=== PATIENT | male | born 1990 | race Two or more races ===

== ENCOUNTER 2022-10-06 13:02 | Emergency (ER) | payer MEDICAID, SELFPAY ==
[2022-10-06 13:06] VITALS: BP 135/89; PULSE 96; RESP 18; TEMP 37.4; O2SAT 99; BMI 31.3
--- NOTE | 2022-10-06 13:06 | ED_ITS ---
HPI - Psych General Chief Complaint: Psychiatric Symptoms <Lynnette Gabriel NP - Last Filed: 10/06/22 13:11> Stated Complaint: crisis <Lynnette Gabriel NP - Last Filed: 10/06/22 13:11> Time Seen by Provider: 10/06/22 13:31 <Lynnette Gabriel NP - Last Filed: 10/06/22 13:11> Source: patient <KIRT Ware - Last Filed: 10/06/22 14:48> Mode of arrival: ambulatory <KIRT Ware - Last Filed: 10/06/22 14:48> Limitations: no limitations <KIRT Ware Last Filed: 10/06/22 14:48> History of Present Illness HPI Narrative: Patient is a 32 year old assigned male at with a history of cocaine use presenting to the emergency department today with increased delusions and paranois. Patient states that he has a history of delusions and they are usually worse with his cocaine use. Patient states that he used cocaine last night and they got bad so he came to the hospital. Patient states that he has no thoughts of harming himself or others. Patient denies any dizziness, lightheadedness, abdominal pain, nausea, vomiting, fever, chills, blurry vision, double vision, loss of vision, chest pain, difficulty breathing, shortness of breath, back pain, night sweats, pain with urination, increased urinary frequency, increased urinary urgency, blood in his urine or stool, syncope or a near syncopal episode, recent trauma or falls, bowel incontinence, bladder incontinence, bowel retention, bladder retention, or any other complaints at this time. <KIRT Ware - Last Filed: 10/06/22 14:48> History of same: Yes <KIRT Ware - Last Filed: 10/06/22 14:48> Relieving factors: none <KIRT Ware - Last Filed: 10/06/22 14:48> Exacerbating factors: drug use (cocaine) <KIRT Ware Last Filed: 10/06/22 14:48> Context: recent drug abuse (cocaine) <KIRT Ware - Last Filed: 10/06/22 14:48> Associated psychiatric symptoms: delusions <KIRT Ware - Last Filed: 10/06/22 14:48> Associated symptoms: denies other symptoms <KIRT Ware - Last Filed: 10/06/22 14:48> Treatments prior to arrival: none <KIRT Ware - Last Filed: 10/06/22 14:48> Related Data Allergies/Adverse Reactions: Allergies Allergy/AdvReac Type Severity Reaction Status Date / Time fluoxetine [From Prozac] Allergy Hives Verified 10/06/22 13:10 prazosin Allergy Hives Verified 10/06/22 13:10 <Lynnette Gabriel NP - Last Filed: 10/06/22 13:11> Review of Systems Constitutional: Constitutional: Reports no additional constitutional complaints, Denies chills, Denies fever(s) and Denies night sweats <KIRT Ware - Last Filed: 10/06/22 14:48> Eyes: Eyes: Reports no additional eye complaints, Denies blurry vision, Denies change in vision, Denies diplopia, Denies eye discharge, Denies loss of vision and Denies eye pain <KIRT Ware - Last Filed: 10/06/22 14:48> ENT: Denies dizziness <KIRT Ware - Last Filed: 10/06/22 14:48> Cardiovascular: Cardiovascular: Reports no additional cardiovascular complaints, Denies chest pain, Denies lightheadedness, Denies Loss of Consciousness and Denies dyspnea <KIRT Ware - Last Filed: 10/06/22 14:48> Respiratory: Respiratory: Reports no additional respiratory complaints and Denies dyspnea <KIRT Ware - Last Filed: 10/06/22 14:48> Gastrointestinal: Gastrointestinal: Reports no additional gastrointestinal complaints, Denies abdominal pain, Denies melena, Denies hematochezia, Denies change in bowel habits and Denies change in stool character <KIRT Ware - Last Filed: 10/06/22 14:48> Genitourinary: Genitourinary: Reports no additional male genitourinary complaints, Denies hematuria, Denies oliguria, Denies difficulty urinating, Denies dysuria, Denies urinary frequency, Denies urinary hesitancy, Denies urinary incontinence and Denies urinary urgency <KIRT Ware - Last Filed: 10/06/22 14:48> Musculoskeletal: Musculoskeletal: Reports no additional musculoskeletal complaints, Denies numbness and Denies tingling <KIRT Ware - Last Filed: 10/06/22 14:48> Neurologic: Denies dizziness, Denies loss of vision, Denies numbness and Denies tingling <KIRT Ware - Last Filed: 10/06/22 14:48> Psychiatric: Psychiatric: Reports no additional psychiatric complaints and Reports paranoia <KIRT Ware - Last Filed: 10/06/22 14:48> Endocrine: Endocrine: Reports no additional endocrine complaints <KIRT Ware - Last Filed: 10/06/22 14:48> Hematologic/Lymphatic: Hematologic/Lymphatic: Reports no additional hematologic/lymphatic complaints <KIRT Ware - Last Filed: 10/06/22 14:48> Allergic/Immunologic: Allergic/Immunologic: Reports no additional allergic/immunologic complaints <KIRT Ware - Last Filed: 10/06/22 14:48> [facility] Past Medical History Attestation statement: The following information was validated with the patient. <KIRT Ware - Last Filed: 10/06/22 14:48> Source: old records reviewed and nursing notes reviewed <KIRT Ware - Last Filed: 10/06/22 14:48> Social History Social History: Social History Advance Directives: No Advance Directives Information Provided: No <Lynnette Gabriel NP - Last Filed: 10/06/22 13:11> Physical Exam Vital Signs: Vital Signs: Last Vital Signs Temp 99.3 F 10/06/22 13:06 Pulse 96 10/06/22 13:06 Resp 18 10/06/22 13:06 BP 135/89 10/06/22 13:06 Pulse Ox 99 10/06/22 13:06 O2 Del Method 10/06/22 13:06 BMI result Body Mass Index 31.3 <Lynnette Gabriel NP - Last Filed: 10/06/22 13:11> Vital Signs: Last Vital Signs Temp 99.3 F 10/06/22 13:06 Pulse 96 10/06/22 13:06 Resp 18 10/06/22 13:06 BP 135/89 10/06/22 13:06 Pulse Ox 99 10/06/22 13:06 O2 Del Method 10/06/22 13:06 BMI result Body Mass Index 31.3 <KIRT Ware - Last Filed: 10/06/22 14:48> Const: General: cooperative, no acute distress, alert and awake <KIRT Ware - Last Filed: 10/06/22 14:48> Nutritional Appearance: well nourished <KIRT Ware - Last Filed: 10/06/22 14:48> Orientation/consciousness: patient oriented x3 <KIRT Ware - Last Filed: 10/06/22 14:48> Limitations: no limitations <KIRT Ware - Last Filed: 10/06/22 14:48> HEENT: Head: Yes normal to inspection and Yes atraumatic <KIRT Ware - Last Filed: 10/06/22 14:48> Ears: hearing grossly normal bilaterally and external ears normal <KIRT Ware - Last Filed: 10/06/22 14:48> General nose exam: Normal external nose present, no nasal discharge noted and no epistaxis <KIRT Ware - Last Filed: 10/06/22 14:48> Face and sinus: Yes normal facial exam, No abrasion and No laceration <KIRT Ware - Last Filed: 10/06/22 14:48> Mouth: Normal oral and palatal mucosa present, no drooling and no muffled voice <KIRT Ware - Last Filed: 10/06/22 14:48> Eyes: General: appearance normal, both eyes and all related structures <KIRT Ware - Last Filed: 10/06/22 14:48> Periorbital: periorbital findings normal <KIRT Ware - Last Filed: 10/06/22 14:48> Eyelids: Yes eyelids normal <KIRT Ware - Last Filed: 10/06/22 14:48> Conjunctivae: conjunctivae normal <KIRT Ware - Last Filed: 10/06/22 14:48> Pupils: Equal, round and reactive pupils present <Sigrid Pickens MI - Last Filed: 10/06/22 14:48> EOM: EOMs intact bilaterally <Sigrid Pickens MI - Last Filed: 10/06/22 14:48> Neck: Neck: Yes normal visual inspection, Yes full ROM and Yes no lymphadenopathy <Sigrid Pickens MI - Last Filed: 10/06/22 14:48> Chest: Chest palpation & inspection: normal inspection of the chest <Sigrid Pickens MI - Last Filed: 10/06/22 14:48> Resp: Effort & Inspection: normal respiratory effort and able to speak in complete sentences <Sigrid Pickens MI - Last Filed: 10/06/22 14:48> Auscultation: clear to auscultation bilaterally <Sigrid Pickens MI - Last Filed: 10/06/22 14:48> Cardio: Rate: regular rate <Sigrid Pickens MI - Last Filed: 10/06/22 14:48> Rhythm: regular rhythm <Sigrid Pickens MI - Last Filed: 10/06/22 14:48> GI: Inspection: Yes normal to inspection <Sigrid Pickens MI - Last Filed: 10/06/22 14:48> Neuro: General: patient oriented x3 and moves all extremities <Sigrid Pickens MI - Last Filed: 10/06/22 14:48> Cranial nerves: Yes Equal, round and reactive pupils present <Sigrid Pickens MI - Last Filed: 10/06/22 14:48> Cognition (Neuro): normal cognition <Sigrid Pickens MI - Last Filed: 10/06/22 14:48> Motor exam (neuro): 5/5 motor strength present throughout <Sigrid Pickens MI - Last Filed: 10/06/22 14:48> Sensory Exam: Normal double simultaneous stimulation for sensation <Sigrid Pickens MI - Last Filed: 10/06/22 14:48> Coordination: [id number] test normal <Sigrid Pickens MI - Last Filed: 10/06/22 14:48> Extrem: General: Yes normal to inspection, Yes full ROM and Yes capillary refill normal <KIRT Ware - Last Filed: 10/06/22 14:48> Psych: Appearance: grossly normal <KIRT Ware - Last Filed: 10/06/22 14:48> Mental Status: mental status grossly normal <KIRT Ware - Last Filed: 10/06/22 14:48> Affect: normal affect <KIRT Ware - Last Filed: 10/06/22 14:48> Attitude: cooperative <KIRT Ware - Last Filed: 10/06/22 14:48> Thought process: Normal thought process present <KIRT Ware - Last Filed: 10/06/22 14:48> Thought content: Normal thought content present <KIRT Ware - Last Filed: 10/06/22 14:48> Insight: Good insight present (Psych) <KIRT Ware - Last Filed: 10/06/22 14:48> Course Course Course Narrative: This is rapid medical exam. Deferred additional HPI, ROS, PE to primary provider. 32 yo male with history of mental health (treated in [place] [facility]-not on medications) here with paranoia,hallucinations, not sleeping. No SI/HI. Will obtain labs, BURGER, COVID screen. Patient to be brought into [facility]. <Lynnette Gabriel NP - Last Filed: 10/06/22 13:11> Medical Decision Making Medical Decision Making MDM Narrative: Patient is a 32 year old assigned male at with a history of delusions and cocaine use presenting to the emergency department today with increased delusions after cocaine use. Patient's physical exam was unremarkable. Patient was placed in the POD and requested to leave shortly after. Patient stated that the POD reminded him of correction and he knows his delusions got worse because he used cocaine. Patient states that he would rather go home and stop using cocaine. I explained my physical exam findings to the patient. I answered all questions asked by the patient. I stressed the importance of the patient taking his medication as prescribed. I stressed the importance of the patient following up with his primary care provider. I stressed the importance of the patient returning to the emergency department immediately if his symptoms were to worsen or if he were to develop any dizziness, shortness of breath, difficulty breathing, chest pain, blurry vision, loss of vision, nausea, vomiting, abdominal pain, fever, chills, back pain, or any other complaints. Patient verbalized agreement and understanding with this treatment plan and discharge. <KIRT Ware - Last Filed: 10/06/22 14:48> Differential Diagnosis Differential Diagnoses: The differential diagnosis associated with the presentation includes <KIRT Ware - Last Filed: 10/06/22 14:48> delusions, cocaine use <KIRT Ware - Last Filed: 10/06/22 14:48> Lab Data MDM Lab Attestation statement: I reviewed the patient's lab results. <KIRT Ware Last Filed: 10/06/22 14:48> Labs: Lab Results 10/06/22 10/06/22 Range/Units 13:51 13:51 Urine Opiates Screen Not Detected (Not Detect) Urine Fentanyl Screen POSITIVE H (Not Detect) Ur Barbiturates Screen Not Detected (Not Detect) Ur Phencyclidine Scrn Not Detected (Not Detect) Ur Amphetamines Screen Not Detected (Not Detect) U Benzodiazepines Scrn Not Detected (Not Detect) Urine Cocaine Screen POSITIVE H (Not Detect) U Marijuana (THC) Screen POSITIVE H (Not Detect) COVID-19 ([place]) Negative (Negative) COVID-19 Clin Com See Note <Lynnette Gabriel NP - Last Filed: 10/06/22 13:11> Lab Results 10/06/22 10/06/22 Range/Units 13:51 13:51 Urine Opiates Screen Not Detected (Not Detect) Urine Fentanyl Screen POSITIVE H (Not Detect) Ur Barbiturates Screen Not Detected (Not Detect) Ur Phencyclidine Scrn Not Detected (Not Detect) Ur Amphetamines Screen Not Detected (Not Detect) U Benzodiazepines Scrn Not Detected (Not Detect) Urine Cocaine Screen POSITIVE H (Not Detect) U Marijuana (THC) Screen POSITIVE H (Not Detect) COVID-19 ([place]) Negative (Negative) COVID-19 Clin Com See Note <KIRT Ware - Last Filed: 10/06/22 14:48> Discharge Plan Discharge Clinical Impression: Cocaine use <Lynnette Gabriel NP - Last Filed: 10/06/22 13:11> Patient Disposition: Home, Self-Care <ANGELITA Zambrano Last Filed: 10/06/22 13:11> Instructions: Cocaine Abuse (ED) <Lynnette Gabriel NP - Last Filed: 10/06/22 13:11> Additional Instructions: Follow up with your primary care provider. Return to the emergency department immediately if your symptoms worsen or if you develop any dizziness, shortness of breath, difficulty breathing, chest pain, blurry vision, loss of vision, nausea, vomiting, abdominal pain, fever, chills, back pain, or any other complaints. <Lynnette Gabriel NP - Last Filed: 10/06/22 13:11> Referrals: Tiffani Beatty MD [Primary Care Provider] - <Lynnette Gabriel NP - Last Filed: 10/06/22 13:11> Interventions: [place]-Suicide Risk Severity Scale Last Done: 10/06/22 14:09 ED Discharge Assessment Last Done: 10/06/22 14:07 <Lynnette Gabriel NP - Last Filed: 10/06/22 13:11> Discharge Date/Time: 10/06/22 14:09 <Lynnette Gabriel NP - Last Filed: 10/06/22 13:11> Print Language: Lithuanian <Lynnette Gabriel NP - Last Filed: 10/06/22 13:11>
[2022-10-06 14:10] LABS: Amphetamine Screen Urine Not Detected (Not Detect); Barbiturates, Urine Not Detected (Not Detect); Benzodiazepines Screen Urine Not Detected (Not Detect); Cannabinoid Screen Urine POSITIVE (Not Detect); Cocaine Screen Urine POSITIVE (Not Detect); Fentanyl, urine POSITIVE (Not Detect); Opiate Screen Urine Not Detected (Not Detect); Phencyclidine Screen Urine Not Detected (Not Detect)
[2022-10-06 14:18] LABS: COVID-19 Test Negative (Negative); IDNOW Serial# 16C4AD1C
== END 2022-10-06 14:09 | disposition home or self-care (01) ==
PROVIDERS: Nurse Practitioner Family; Emergency Provider Student in an Organized Health Care Education/Training Program; PCP Family Medicine
DX: F14.10 Cocaine abuse, uncomplicated (principal); F22 Delusional disorders; Z20.822 Contact with and (suspected) exposure to COVID-19
CPT/HCPCS: 80307; 87635; 99283

== ENCOUNTER 2022-11-08 16:44 | Emergency (ER) | payer OTHER, MEDICAID, SELFPAY ==
--- NOTE | ~2022-11-08 | XR_ITS ---
EXAMINATION: XR CHEST CLINICAL INFORMATION: Leukocytosis and altered mental status COMPARISON: None TECHNIQUE: Frontal view of the chest was obtained. FINDINGS: No significant abnormality is noted involving the heart, lungs, mediastinum, bony thorax or soft tissues. XR/XR chest 1V IMPRESSION: Unremarkable examination.
--- NOTE | 2022-11-08 16:48 | ED_ITS ---
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 Comments Sodium 137 (135-145) mmol/L Potassium 3.9 (3.3-5.1) mmol/L Chloride 101 (96-108) mmol/L Carbon Dioxide 23 (22-29) mmol/L Anion Gap 17 (12-20) BUN 12 (9-16) mg/dL Creatinine 1.20 (0.5-1.4) mg/dL Estim Creat Clear Calc 85.3 Estimated GFR > 60 Random Glucose 103 (60-115) mg/dL Calcium 9.3 (8.4-10.2) mg/dL Total Bilirubin 2.2 H (0.0-1.0) mg/dL AST 86 H (5-37) U/L ALT 30 (0-40) U/L Alkaline Phosphatase 108 (39-117) U/L Troponin I High Sens (<3.5-35.0) ng/L Total Protein 7.1 (6.5-8.0) g/dL Albumin 4.4 (3.5-5.0) g/dL Urine Color Urine Appearance Urine pH (5.0-9.0) Ur Specific [place] (1.005-1.025) Urine Protein (Neg-Trace) mg/dL Urine Glucose (UA) (Negative) mg/dL Urine Ketones (Negative) mg/dL Urine Blood (Negative) Urine Nitrite (Negative) Ur Leukocyte Esterase (Negative) Urine RBC (0-2) /HPF Urine WBC (0-5) /HPF Ur Squamous Epith Cells (0-2) /HPF Urine Bacteria (None Seen) Hyaline Casts (0-2) /LPF Salicylates (15-30) mg/dL Urine Opiates Screen (Not Detect) Urine Fentanyl Screen (Not Detect) Acetaminophen (<30) mcg/mL Ur Barbiturates Screen (Not Detect) Ur Phencyclidine Scrn (Not Detect) Ur Amphetamines Screen (Not Detect) U Benzodiazepines Scrn (Not Detect) Urine Cocaine Screen (Not Detect) U Marijuana (THC) Screen (Not Detect) Ethyl Alcohol < 10 mg/dL COVID-19 (NAKUL) Negative (Negative) COVID-19 Clin Com See Note Influenza Type A (ANGELIKA) (Negative) Influenza Type B (ANGELIKA) (Negative) Influenza A & B Note 11/08/22 11/08/22 11/08/22 Range/Units 18:14 18:14 20:08 WBC (4.8-10.8) X10*3/uL RBC (4.60-5.80) X10*6/uL Hgb (14.0-18.0) g/dl Hct (42.0-52.0) % MCV (80.0-98.0) fL MCH (27.0-33.0) pg MCHC (31.0-36.0) g/dl RDW (11.0-16.0) % Plt Count (160-400) X10*3/uL MPV (9.4-12.4) fL Immature Gran % (Auto) (0.0-0.4) % Neut % (Auto) (45-73) % Lymph % (Auto) (20-40) % [place] % (Auto) (2-11) % Eos % (Auto) (0-4) % Baso % (Auto) (0-2) % Lymph # (Auto) (1.2-4.9) X10*3/uL [place] # (Auto) (0.1-1.2) X10*3/uL Eos # (Auto) (0.0-0.4) X10*3/uL Baso # (Auto) (0.0-0.2) X10*3/uL Abs Immat Gran (auto) (0.00-0.03) X10*3/uL Absolute Neuts (auto) (2.0-8.3) x10*3/uL Absolute Nucleated RBC (0.0-0.012) X10*3/uL Nucleated RBC % (auto) (0.0-0.2) /100WBC Smear Tech's Comments Sodium (135-145) mmol/L Potassium (3.3-5.1) mmol/L Chloride (96-108) mmol/L Carbon Dioxide (22-29) mmol/L Anion Gap (12-20) BUN (9-16) mg/dL Creatinine (0.5-1.4) mg/dL Estim Creat Clear Calc Estimated GFR Random Glucose (60-115) mg/dL Calcium (8.4-10.2) mg/dL Total Bilirubin (0.0-1.0) mg/dL AST (5-37) U/L ALT (0-40) U/L Alkaline Phosphatase (39-117) U/L Troponin I High Sens 6.9 (<3.5-35.0) ng/L Total Protein (6.5-8.0) g/dL Albumin (3.5-5.0) g/dL Urine Color Urine Appearance Urine pH (5.0-9.0) Ur Specific [place] (1.005-1.025) Urine Protein (Neg-Trace) mg/dL Urine Glucose (UA) (Negative) mg/dL Urine Ketones (Negative) mg/dL Urine Blood (Negative) Urine Nitrite (Negative) Ur Leukocyte Esterase (Negative) Urine RBC (0-2) /HPF Urine WBC (0-5) /HPF Ur Squamous Epith Cells (0-2) /HPF Urine Bacteria (None Seen) Hyaline Casts (0-2) /LPF Salicylates < 5.0 L (15-30) mg/dL Urine Opiates Screen (Not Detect) Urine Fentanyl Screen (Not Detect) Acetaminophen < 17 (<30) mcg/mL Ur Barbiturates Screen (Not Detect) Ur Phencyclidine Scrn (Not Detect) Ur Amphetamines Screen (Not Detect) U Benzodiazepines Scrn (Not Detect) Urine Cocaine Screen (Not Detect) U Marijuana (THC) Screen (Not Detect) Ethyl Alcohol mg/dL COVID-19 (NAKUL) (Negative) COVID-19 Clin Com Influenza Type A (ANGELIKA) Negative (Negative) Influenza Type B (ANGELIKA) Negative (Negative) Influenza A & B Note See Note 11/09/22 11/09/22 11/09/22 Range/Units 03:34 03:40 03:40 WBC 14.4 H (4.8-10.8) X10*3/uL RBC 5.29 (4.60-5.80) X10*6/uL Hgb 15.9 (14.0-18.0) g/dl Hct 46.1 (42.0-52.0) % MCV 87.1 (80.0-98.0) fL MCH 30.1 (27.0-33.0) pg MCHC 34.5 (31.0-36.0) g/dl RDW 12.4 (11.0-16.0) % Plt Count 158 L (160-400) X10*3/uL MPV 9.4 (9.4-12.4) fL Immature Gran % (Auto) 0.3 (0.0-0.4) % Neut % (Auto) 69.2 (45-73) % Lymph % (Auto) 13.6 L (20-40) % [place] % (Auto) 12.7 H (2-11) % Eos % (Auto) 3.5 (0-4) % Baso % (Auto) 0.7 (0-2) % Lymph # (Auto) 2.0 (1.2-4.9) X10*3/uL [place] # (Auto) 1.8 H (0.1-1.2) X10*3/uL Eos # (Auto) 0.5 H (0.0-0.4) X10*3/uL Baso # (Auto) 0.1 (0.0-0.2) X10*3/uL Abs Immat Gran (auto) 0.04 H (0.00-0.03) X10*3/uL Absolute Neuts (auto) 10.0 H (2.0-8.3) x10*3/uL Absolute Nucleated RBC 0.000 (0.0-0.012) X10*3/uL Nucleated RBC % (auto) 0.0 (0.0-0.2) /100WBC Smear Tech's Comments VERIFIED Sodium (135-145) mmol/L Potassium (3.3-5.1) mmol/L Chloride (96-108) mmol/L Carbon Dioxide (22-29) mmol/L Anion Gap (12-20) BUN (9-16) mg/dL Creatinine (0.5-1.4) mg/dL Estim Creat Clear Calc Estimated GFR Random Glucose (60-115) mg/dL Calcium (8.4-10.2) mg/dL Total Bilirubin (0.0-1.0) mg/dL AST (5-37) U/L ALT (0-40) U/L Alkaline Phosphatase (39-117) U/L Troponin I High Sens (<3.5-35.0) ng/L Total Protein (6.5-8.0) g/dL Albumin (3.5-5.0) g/dL Urine Color Yellow Urine Appearance Clear Urine pH 6.0 (5.0-9.0) Ur Specific [place] 1.025 (1.005-1.025) Urine Protein 30 (1+) H (Neg-Trace) mg/dL Urine Glucose (UA) Negative (Negative) mg/dL Urine Ketones 40 (Negative) mg/dL Urine Blood Negative (Negative) Urine Nitrite Negative (Negative) Ur Leukocyte Esterase Negative (Negative) Urine RBC 0-2 (0-2) /HPF Urine WBC 0-5 (0-5) /HPF Ur Squamous Epith Cells 0-2 (0-2) /HPF Urine Bacteria None Seen (None Seen) Hyaline Casts 0-2 (0-2) /LPF Salicylates (15-30) mg/dL Urine Opiates Screen Not Detected (Not Detect) Urine Fentanyl Screen POSITIVE H (Not Detect) Acetaminophen (<30) mcg/mL Ur Barbiturates Screen Not Detected (Not Detect) Ur Phencyclidine Scrn Not Detected (Not Detect) Ur Amphetamines Screen Not Detected (Not Detect) U Benzodiazepines Scrn Not Detected (Not Detect) Urine Cocaine Screen POSITIVE H (Not Detect) U Marijuana (THC) Screen POSITIVE H (Not Detect) Ethyl Alcohol mg/dL COVID-19 (NAKUL) (Negative) COVID-19 Clin Com Influenza Type A (ANGELIKA) (Negative) Influenza Type B (ANGELIKA) (Negative) Influenza A & B Note <KIRT Moulton - Last Filed: 11/09/22 01:41> Lab Results 11/08/22 11/08/22 11/08/22 Range/Units 18:14 18:14 18:14 WBC 15.1 H (4.8-10.8) X10*3/uL RBC 5.16 (4.60-5.80) X10*6/uL Hgb 15.7 (14.0-18.0) g/dl Hct 44.4 (42.0-52.0) % MCV 86.0 (80.0-98.0) fL MCH 30.4 (27.0-33.0) pg MCHC 35.4 (31.0-36.0) g/dl RDW 12.2 (11.0-16.0) % Plt Count 180 (160-400) X10*3/uL MPV 9.5 (9.4-12.4) fL Immature Gran % (Auto) 0.4 (0.0-0.4) % Neut % (Auto) 82.8 H (45-73) % Lymph % (Auto) 5.9 L (20-40) % [place] % (Auto) 8.5 (2-11) % Eos % (Auto) 1.8 (0-4) % Baso % (Auto) 0.6 (0-2) % Lymph # (Auto) 0.9 L (1.2-4.9) X10*3/uL [place] # (Auto) 1.3 H (0.1-1.2) X10*3/uL Eos # (Auto) 0.3 (0.0-0.4) X10*3/uL Baso # (Auto) 0.1 (0.0-0.2) X10*3/uL Abs Immat Gran (auto) 0.06 H (0.00-0.03) X10*3/uL Absolute Neuts (auto) 12.5 H (2.0-8.3) x10*3/uL Absolute Nucleated RBC 0.000 (0.0-0.012) X10*3/uL Nucleated RBC % (auto) 0.0 (0.0-0.2) /100WBC Smear Tech's Comments Sodium 137 (135-145) mmol/L Potassium 3.9 (3.3-5.1) mmol/L Chloride 101 (96-108) mmol/L Carbon Dioxide 23 (22-29) mmol/L Anion Gap 17 (12-20) BUN 12 (9-16) mg/dL Creatinine 1.20 (0.5-1.4) mg/dL Estim Creat Clear Calc 85.3 Estimated GFR > 60 Random Glucose 103 (60-115) mg/dL Calcium 9.3 (8.4-10.2) mg/dL Total Bilirubin 2.2 H (0.0-1.0) mg/dL AST 86 H (5-37) U/L ALT 30 (0-40) U/L Alkaline Phosphatase 108 (39-117) U/L Troponin I High Sens (<3.5-35.0) ng/L Total Protein 7.1 (6.5-8.0) g/dL Albumin 4.4 (3.5-5.0) g/dL Urine Color Urine Appearance Urine pH (5.0-9.0) Ur Specific [place] (1.005-1.025) Urine Protein (Neg-Trace) mg/dL Urine Glucose (UA) (Negative) mg/dL Urine Ketones (Negative) mg/dL Urine Blood (Negative) Urine Nitrite (Negative) Ur Leukocyte Esterase (Negative) Urine RBC (0-2) /HPF Urine WBC (0-5) /HPF Ur Squamous Epith Cells (0-2) /HPF Urine Bacteria (None Seen) Hyaline Casts (0-2) /LPF Salicylates (15-30) mg/dL Urine Opiates Screen (Not Detect) Urine Fentanyl Screen (Not Detect) Acetaminophen (<30) mcg/mL Ur Barbiturates Screen (Not Detect) Ur Phencyclidine Scrn (Not Detect) Ur Amphetamines Screen (Not Detect) U Benzodiazepines Scrn (Not Detect) Urine Cocaine Screen (Not Detect) U Marijuana (THC) Screen (Not Detect) Ethyl Alcohol < 10 mg/dL COVID-19 (NAKUL) Negative (Negative) COVID-19 Clin Com See Note Influenza Type A (ANGELIKA) (Negative) Influenza Type B (ANGELIKA) (Negative) Influenza A & B Note 11/08/22 11/08/22 11/08/22 Range/Units 18:14 18:14 20:08 WBC (4.8-10.8) X10*3/uL RBC (4.60-5.80) X10*6/uL Hgb (14.0-18.0) g/dl Hct (42.0-52.0) % MCV (80.0-98.0) fL MCH (27.0-33.0) pg MCHC (31.0-36.0) g/dl RDW (11.0-16.0) % Plt Count (160-400) X10*3/uL MPV (9.4-12.4) fL Immature Gran % (Auto) (0.0-0.4) % Neut % (Auto) (45-73) % Lymph % (Auto) (20-40) % [place] % (Auto) (2-11) % Eos % (Auto) (0-4) % Baso % (Auto) (0-2) % Lymph # (Auto) (1.2-4.9) X10*3/uL [place] # (Auto) (0.1-1.2) X10*3/uL Eos # (Auto) (0.0-0.4) X10*3/uL Baso # (Auto) (0.0-0.2) X10*3/uL Abs Immat Gran (auto) (0.00-0.03) X10*3/uL Absolute Neuts (auto) (2.0-8.3) x10*3/uL Absolute Nucleated RBC (0.0-0.012) X10*3/uL Nucleated RBC % (auto) (0.0-0.2) /100WBC Smear Tech's Comments Sodium (135-145) mmol/L Potassium (3.3-5.1) mmol/L Chloride (96-108) mmol/L Carbon Dioxide (22-29) mmol/L Anion Gap (12-20) BUN (9-16) mg/dL Creatinine (0.5-1.4) mg/dL Estim Creat Clear Calc Estimated GFR Random Glucose (60-115) mg/dL Calcium (8.4-10.2) mg/dL Total Bilirubin (0.0-1.0) mg/dL AST (5-37) U/L ALT (0-40) U/L Alkaline Phosphatase (39-117) U/L Troponin I High Sens 6.9 (<3.5-35.0) ng/L Total Protein (6.5-8.0) g/dL Albumin (3.5-5.0) g/dL Urine Color Urine Appearance Urine pH (5.0-9.0) Ur Specific [place] (1.005-1.025) Urine Protein (Neg-Trace) mg/dL Urine Glucose (UA) (Negative) mg/dL Urine Ketones (Negative) mg/dL Urine Blood (Negative) Urine Nitrite (Negative) Ur Leukocyte Esterase (Negative) Urine RBC (0-2) /HPF Urine WBC (0-5) /HPF Ur Squamous Epith Cells (0-2) /HPF Urine Bacteria (None Seen) Hyaline Casts (0-2) /LPF Salicylates < 5.0 L (15-30) mg/dL Urine Opiates Screen (Not Detect) Urine Fentanyl Screen (Not Detect) Acetaminophen < 17 (<30) mcg/mL Ur Barbiturates Screen (Not Detect) Ur Phencyclidine Scrn (Not Detect) Ur Amphetamines Screen (Not Detect) U Benzodiazepines Scrn (Not Detect) Urine Cocaine Screen (Not Detect) U Marijuana (THC) Screen (Not Detect) Ethyl Alcohol mg/dL COVID-19 (NAKUL) (Negative) COVID-19 Clin Com Influenza Type A (ANGELIKA) Negative (Negative) Influenza Type B (ANGELIKA) Negative (Negative) Influenza A & B Note See Note 11/09/22 11/09/22 11/09/22 Range/Units 03:34 03:40 03:40 WBC 14.4 H (4.8-10.8) X10*3/uL RBC 5.29 (4.60-5.80) X10*6/uL Hgb 15.9 (14.0-18.0) g/dl Hct 46.1 (42.0-52.0) % MCV 87.1 (80.0-98.0) fL MCH 30.1 (27.0-33.0) pg MCHC 34.5 (31.0-36.0) g/dl RDW 12.4 (11.0-16.0) % Plt Count 158 L (160-400) X10*3/uL MPV 9.4 (9.4-12.4) fL Immature Gran % (Auto) 0.3 (0.0-0.4) % Neut % (Auto) 69.2 (45-73) % Lymph % (Auto) 13.6 L (20-40) % [place] % (Auto) 12.7 H (2-11) % Eos % (Auto) 3.5 (0-4) % Baso % (Auto) 0.7 (0-2) % Lymph # (Auto) 2.0 (1.2-4.9) X10*3/uL [place] # (Auto) 1.8 H (0.1-1.2) X10*3/uL Eos # (Auto) 0.5 H (0.0-0.4) X10*3/uL Baso # (Auto) 0.1 (0.0-0.2) X10*3/uL Abs Immat Gran (auto) 0.04 H (0.00-0.03) X10*3/uL Absolute Neuts (auto) 10.0 H (2.0-8.3) x10*3/uL Absolute Nucleated RBC 0.000 (0.0-0.012) X10*3/uL Nucleated RBC % (auto) 0.0 (0.0-0.2) /100WBC Smear Tech's Comments VERIFIED Sodium (135-145) mmol/L Potassium (3.3-5.1) mmol/L Chloride (96-108) mmol/L Carbon Dioxide (22-29) mmol/L Anion Gap (12-20) BUN (9-16) mg/dL Creatinine (0.5-1.4) mg/dL Estim Creat Clear Calc Estimated GFR Random Glucose (60-115) mg/dL Calcium (8.4-10.2) mg/dL Total Bilirubin (0.0-1.0) mg/dL AST (5-37) U/L ALT (0-40) U/L Alkaline Phosphatase (39-117) U/L Troponin I High Sens (<3.5-35.0) ng/L Total Protein (6.5-8.0) g/dL Albumin (3.5-5.0) g/dL Urine Color Yellow Urine Appearance Clear Urine pH 6.0 (5.0-9.0) Ur Specific [place] 1.025 (1.005-1.025) Urine Protein 30 (1+) H (Neg-Trace) mg/dL Urine Glucose (UA) Negative (Negative) mg/dL Urine Ketones 40 (Negative) mg/dL Urine Blood Negative (Negative) Urine Nitrite Negative (Negative) Ur Leukocyte Esterase Negative (Negative) Urine RBC 0-2 (0-2) /HPF Urine WBC 0-5 (0-5) /HPF Ur Squamous Epith Cells 0-2 (0-2) /HPF Urine Bacteria None Seen (None Seen) Hyaline Casts 0-2 (0-2) /LPF Salicylates (15-30) mg/dL Urine Opiates Screen Not Detected (Not Detect) Urine Fentanyl Screen POSITIVE H (Not Detect) Acetaminophen (<30) mcg/mL Ur Barbiturates Screen Not Detected (Not Detect) Ur Phencyclidine Scrn Not Detected (Not Detect) Ur Amphetamines Screen Not Detected (Not Detect) U Benzodiazepines Scrn Not Detected (Not Detect) Urine Cocaine Screen POSITIVE H (Not Detect) U Marijuana (THC) Screen POSITIVE H (Not Detect) Ethyl Alcohol mg/dL COVID-19 (NAKUL) (Negative) COVID-19 Clin Com Influenza Type A (ANGELIKA) (Negative) Influenza Type B (ANGELIKA) (Negative) Influenza A & B Note <Artemio Pichardo, DO - Last Filed: 11/09/22 08:39> Lab Results 11/08/22 11/08/22 11/08/22 Range/Units 18:14 18:14 18:14 WBC 15.1 H (4.8-10.8) X10*3/uL RBC 5.16 (4.60-5.80) X10*6/uL Hgb 15.7 (14.0-18.0) g/dl Hct 44.4 (42.0-52.0) % MCV 86.0 (80.0-98.0) fL MCH 30.4 (27.0-33.0) pg MCHC 35.4 (31.0-36.0) g/dl RDW 12.2 (11.0-16.0) % Plt Count 180 (160-400) X10*3/uL MPV 9.5 (9.4-12.4) fL Immature Gran % (Auto) 0.4 (0.0-0.4) % Neut % (Auto) 82.8 H (45-73) % Lymph % (Auto) 5.9 L (20-40) % [place] % (Auto) 8.5 (2-11) % Eos % (Auto) 1.8 (0-4) % Baso % (Auto) 0.6 (0-2) % Lymph # (Auto) 0.9 L (1.2-4.9) X10*3/uL [place] # (Auto) 1.3 H (0.1-1.2) X10*3/uL Eos # (Auto) 0.3 (0.0-0.4) X10*3/uL Baso # (Auto) 0.1 (0.0-0.2) X10*3/uL Abs Immat Gran (auto) 0.06 H (0.00-0.03) X10*3/uL Absolute Neuts (auto) 12.5 H (2.0-8.3) x10*3/uL Absolute Nucleated RBC 0.000 (0.0-0.012) X10*3/uL Nucleated RBC % (auto) 0.0 (0.0-0.2) /100WBC Smear Tech's Comments Sodium 137 (135-145) mmol/L Potassium 3.9 (3.3-5.1) mmol/L Chloride 101 (96-108) mmol/L Carbon Dioxide 23 (22-29) mmol/L Anion Gap 17 (12-20) BUN 12 (9-16) mg/dL Creatinine 1.20 (0.5-1.4) mg/dL Estim Creat Clear Calc 85.3 Estimated GFR > 60 Random Glucose 103 (60-115) mg/dL Calcium 9.3 (8.4-10.2) mg/dL Total Bilirubin 2.2 H (0.0-1.0) mg/dL AST 86 H (5-37) U/L ALT 30 (0-40) U/L Alkaline Phosphatase 108 (39-117) U/L Troponin I High Sens (<3.5-35.0) ng/L Total Protein 7.1 (6.5-8.0) g/dL Albumin 4.4 (3.5-5.0) g/dL Urine Color Urine Appearance Urine pH (5.0-9.0) Ur Specific [place] (1.005-1.025) Urine Protein (Neg-Trace) mg/dL Urine Glucose (UA) (Negative) mg/dL Urine Ketones (Negative) mg/dL Urine Blood (Negative) Urine Nitrite (Negative) Ur Leukocyte Esterase (Negative) Urine RBC (0-2) /HPF Urine WBC (0-5) /HPF Ur Squamous Epith Cells (0-2) /HPF Urine Bacteria (None Seen) Hyaline Casts (0-2) /LPF Salicylates (15-30) mg/dL Urine Opiates Screen (Not Detect) Urine Fentanyl Screen (Not Detect) Acetaminophen (<30) mcg/mL Ur Barbiturates Screen (Not Detect) Ur Phencyclidine Scrn (Not Detect) Ur Amphetamines Screen (Not Detect) U Benzodiazepines Scrn (Not Detect) Urine Cocaine Screen (Not Detect) U Marijuana (THC) Screen (Not Detect) Ethyl Alcohol < 10 mg/dL COVID-19 (NAKUL) Negative (Negative) COVID-19 Clin Com See Note Influenza Type A (ANGELIKA) (Negative) Influenza Type B (ANGELIKA) (Negative) Influenza A & B Note 11/08/22 11/08/22 11/08/22 Range/Units 18:14 18:14 20:08 WBC (4.8-10.8) X10*3/uL RBC (4.60-5.80) X10*6/uL Hgb (14.0-18.0) g/dl Hct (42.0-52.0) % MCV (80.0-98.0) fL MCH (27.0-33.0) pg MCHC (31.0-36.0) g/dl RDW (11.0-16.0) % Plt Count (160-400) X10*3/uL MPV (9.4-12.4) fL Immature Gran % (Auto) (0.0-0.4) % Neut % (Auto) (45-73) % Lymph % (Auto) (20-40) % [place] % (Auto) (2-11) % Eos % (Auto) (0-4) % Baso % (Auto) (0-2) % Lymph # (Auto) (1.2-4.9) X10*3/uL [place] # (Auto) (0.1-1.2) X10*3/uL Eos # (Auto) (0.0-0.4) X10*3/uL Baso # (Auto) (0.0-0.2) X10*3/uL Abs Immat Gran (auto) (0.00-0.03) X10*3/uL Absolute Neuts (auto) (2.0-8.3) x10*3/uL Absolute Nucleated RBC (0.0-0.012) X10*3/uL Nucleated RBC % (auto) (0.0-0.2) /100WBC Smear Tech's Comments Sodium (135-145) mmol/L Potassium (3.3-5.1) mmol/L Chloride (96-108) mmol/L Carbon Dioxide (22-29) mmol/L Anion Gap (12-20) BUN (9-16) mg/dL Creatinine (0.5-1.4) mg/dL Estim Creat Clear Calc Estimated GFR Random Glucose (60-115) mg/dL Calcium (8.4-10.2) mg/dL Total Bilirubin (0.0-1.0) mg/dL AST (5-37) U/L ALT (0-40) U/L Alkaline Phosphatase (39-117) U/L Troponin I High Sens 6.9 (<3.5-35.0) ng/L Total Protein (6.5-8.0) g/dL Albumin (3.5-5.0) g/dL Urine Color Urine Appearance Urine pH (5.0-9.0) Ur Specific [place] (1.005-1.025) Urine Protein (Neg-Trace) mg/dL Urine Glucose (UA) (Negative) mg/dL Urine Ketones (Negative) mg/dL Urine Blood (Negative) Urine Nitrite (Negative) Ur Leukocyte Esterase (Negative) Urine RBC (0-2) /HPF Urine WBC (0-5) /HPF Ur Squamous Epith Cells (0-2) /HPF Urine Bacteria (None Seen) Hyaline Casts (0-2) /LPF Salicylates < 5.0 L (15-30) mg/dL Urine Opiates Screen (Not Detect) Urine Fentanyl Screen (Not Detect) Acetaminophen < 17 (<30) mcg/mL Ur Barbiturates Screen (Not Detect) Ur Phencyclidine Scrn (Not Detect) Ur Amphetamines Screen (Not Detect) U Benzodiazepines Scrn (Not Detect) Urine Cocaine Screen (Not Detect) U Marijuana (THC) Screen (Not Detect) Ethyl Alcohol mg/dL COVID-19 (NAKUL) (Negative) COVID-19 Clin Com Influenza Type A (ANGELIKA) Negative (Negative) Influenza Type B (ANGELIKA) Negative (Negative) Influenza A & B Note See Note 11/09/22 11/09/22 11/09/22 Range/Units 03:34 03:40 03:40 WBC 14.4 H (4.8-10.8) X10*3/uL RBC 5.29 (4.60-5.80) X10*6/uL Hgb 15.9 (14.0-18.0) g/dl Hct 46.1 (42.0-52.0) % MCV 87.1 (80.0-98.0) fL MCH 30.1 (27.0-33.0) pg MCHC 34.5 (31.0-36.0) g/dl RDW 12.4 (11.0-16.0) % Plt Count 158 L (160-400) X10*3/uL MPV 9.4 (9.4-12.4) fL Immature Gran % (Auto) 0.3 (0.0-0.4) % Neut % (Auto) 69.2 (45-73) % Lymph % (Auto) 13.6 L (20-40) % [place] % (Auto) 12.7 H (2-11) % Eos % (Auto) 3.5 (0-4) % Baso % (Auto) 0.7 (0-2) % Lymph # (Auto) 2.0 (1.2-4.9) X10*3/uL [place] # (Auto) 1.8 H (0.1-1.2) X10*3/uL Eos # (Auto) 0.5 H (0.0-0.4) X10*3/uL Baso # (Auto) 0.1 (0.0-0.2) X10*3/uL Abs Immat Gran (auto) 0.04 H (0.00-0.03) X10*3/uL Absolute Neuts (auto) 10.0 H (2.0-8.3) x10*3/uL Absolute Nucleated RBC 0.000 (0.0-0.012) X10*3/uL Nucleated RBC % (auto) 0.0 (0.0-0.2) /100WBC Smear Tech's Comments VERIFIED Sodium (135-145) mmol/L Potassium (3.3-5.1) mmol/L Chloride (96-108) mmol/L Carbon Dioxide (22-29) mmol/L Anion Gap (12-20) BUN (9-16) mg/dL Creatinine (0.5-1.4) mg/dL Estim Creat Clear Calc Estimated GFR Random Glucose (60-115) mg/dL Calcium (8.4-10.2) mg/dL Total Bilirubin (0.0-1.0) mg/dL AST (5-37) U/L ALT (0-40) U/L Alkaline Phosphatase (39-117) U/L Troponin I High Sens (<3.5-35.0) ng/L Total Protein (6.5-8.0) g/dL Albumin (3.5-5.0) g/dL Urine Color Yellow Urine Appearance Clear Urine pH 6.0 (5.0-9.0) Ur Specific [place] 1.025 (1.005-1.025) Urine Protein 30 (1+) H (Neg-Trace) mg/dL Urine Glucose (UA) Negative (Negative) mg/dL Urine Ketones 40 (Negative) mg/dL Urine Blood Negative (Negative) Urine Nitrite Negative (Negative) Ur Leukocyte Esterase Negative (Negative) Urine RBC 0-2 (0-2) /HPF Urine WBC 0-5 (0-5) /HPF Ur Squamous Epith Cells 0-2 (0-2) /HPF Urine Bacteria None Seen (None Seen) Hyaline Casts 0-2 (0-2) /LPF Salicylates (15-30) mg/dL Urine Opiates Screen Not Detected (Not Detect) Urine Fentanyl Screen POSITIVE H (Not Detect) Acetaminophen (<30) mcg/mL Ur Barbiturates Screen Not Detected (Not Detect) Ur Phencyclidine Scrn Not Detected (Not Detect) Ur Amphetamines Screen Not Detected (Not Detect) U Benzodiazepines Scrn Not Detected (Not Detect) Urine Cocaine Screen POSITIVE H (Not Detect) U Marijuana (THC) Screen POSITIVE H (Not Detect) Ethyl Alcohol mg/dL COVID-19 (NAKUL) (Negative) COVID-19 Clin Com Influenza Type A (ANGELIKA) (Negative) Influenza Type B (ANGELIKA) (Negative) Influenza A & B Note <Esthela Henry MD - Last Filed: 11/09/22 19:25> Core Measures AMI core measures followed: Yes <KIRT Moulton - Last Filed: 11/09/22 01:41> Measure exclusions: not indicated <KIRT Moulton - Last Filed: 11/09/22 01:41> Critical Care Time Critical Care Time Critical Care Time: No <KIRT Moulton - Last Filed: 11/09/22 01:41> Discharge Plan Discharge Clinical Impression: Acute psychosis, Substance use disorder <Hortensia Hahn CNP - Last Filed: 11/08/22 16:56> Patient Disposition: Home, Self-Care <Hortensia Hahn CNP - Last Filed: 11/08/22 16:56> Instructions: Brief Psychotic Disorder (ED), Polysubstance Abuse (ED) <Hortensia Hahn CNP - Last Filed: 11/08/22 16:56> Additional Instructions: Please do not hesitate to return to the ER for any worsening symptoms. <Hortensia Hahn CNP - Last Filed: 11/08/22 16:56> Prescriptions: No Action albuterol sulfate [Ventolin HFA] 90 mcg/actuation HFA aerosol inhaler 2 inh INHALATION Q6-8H PRN (Reason: Wheezing) <Hortensia Hahn CNP - Last Filed: 11/08/22 16:56> Referrals: Tiffani Beatty MD [Primary Care Provider] - <Hortensia Hahn CNP - Last Filed: 11/08/22 16:56> Interventions: Mayes-Suicide Risk Severity Scale Last Done: 11/09/22 11:21 ED Discharge Assessment Last Done: 11/09/22 19:42 <Hortensia Hahn CNP - Last Filed: 11/08/22 16:56> Discharge Date/Time: 11/09/22 19:55 <Hortensia Hahn CNP - Last Filed: 11/08/22 16:56>
[2022-11-08 16:51] VITALS: BP 171/114; PULSE 146; RESP 20; O2SAT 95; BMI 30.4
--- NOTE | 2022-11-08 16:54 | ECG_ITS ---
Test Reason : rapid heartrate Blood Pressure : / mmHG Vent. Rate : 131 BPM Atrial Rate : 131 BPM P-R Int : 142 ms QRS Dur : 078 ms QT Int : 280 ms P-R-T Axes : 048 064 007 degrees QTc Int : 413 ms Sinus tachycardia Otherwise normal ECG No previous ECGs available Referred By: Hortensia Hahn Electronically Signed By:Arnold Rivera
[2022-11-08] MEDS: diphenhydrAMINE HCL 25 MG CAPSULE 50 MG PO (18:03)
[2022-11-08] MEDS: LORazepam 1 MG TABLET 2 MG PO (18:04)
[2022-11-08] MEDS: HaloperidoL 5 MG TABLET PO (18:04)
[2022-11-08] MEDS: Diphth,Pertus(ACell),Tet Adult 0.5 ML SYRINGE IM (18:06)
[2022-11-08 18:21] LABS: MANUAL DIFF FLAG NO
[2022-11-08 18:22] LABS: Basophils Absolute Auto 0.1 X10*3/uL (0.0-0.2); Basophils Percent Auto 0.6 % (0-2); Eosinophils Absolute Auto 0.3 X10*3/uL (0.0-0.4); Eosinophils Percent Auto 1.8 % (0-4); Hematocrit 44.4 % (42.0-52.0); Hemoglobin 15.7 g/dl (14.0-18.0); Imm Gran Abs Auto 0.06 X10*3/uL (0.00-0.03); Imm Gran Pct Auto 0.4 % (0.0-0.4); Lymphocytes Absolute Auto 0.9 X10*3/uL (1.2-4.9); Lymphocytes Percent Auto 5.9 % (20-40); Mean Corpuscular HGB Conc 35.4 g/dl (31.0-36.0); Mean Corpuscular Hemoglobin 30.4 pg (27.0-33.0); Mean Platelet Volume 9.5 fL (9.4-12.4); Monocytes Absolute Auto 1.3 X10*3/uL (0.1-1.2); Monocytes Percent Auto 8.5 % (2-11); Neutrophils Absolute Auto 12.5 x10*3/uL (2.0-8.3); Neutrophils Percent Auto 82.8 % (45-73); Platelet Count 180 X10*3/uL (160-400); Red Blood Count 5.16 X10*6/uL (4.60-5.80); Red Cell Distribution Width 12.2 % (11.0-16.0); White Blood Count 15.1 X10*3/uL (4.8-10.8)
[2022-11-08 18:48] LABS: Troponin-I High Sensitivity 6.9 ng/L (<3.5-35.0)
[2022-11-08 18:49] LABS: Alanine Aminotransferase 30 U/L (0-40); Albumin Level 4.4 g/dL (3.5-5.0); Alkaline Phosphatase 108 U/L (39-117); Anion Gap 17 (12-20); Aspartate Amino Transferase 86 U/L (5-37); Bilirubin Total 2.2 mg/dL (0.0-1.0); Blood Urea Nitrogen 12 mg/dL (9-16); Calcium 9.3 mg/dL (8.4-10.2); Carbon Dioxide 23 mmol/L (22-29); Chloride 101 mmol/L (96-108); Creatinine Clr Calc Pharmacy 85.3; Estimated Glomerular Filt Rate > 60; Ethanol < 10 mg/dL; Glucose Random 103 mg/dL (60-115); Potassium 3.9 mmol/L (3.3-5.1); Sodium 137 mmol/L (135-145); Total Protein 7.1 g/dL (6.5-8.0)
[2022-11-08 18:50] LABS: Acetaminophen LAB < 17 mcg/mL (<30); Salicylate < 5.0 mg/dL (15-30)
[2022-11-08 18:54] LABS: COVID-19 Test Negative (Negative); IDNOW Serial# 16C4AD1C
[2022-11-08 19:20] VITALS: BP 138/87; PULSE 108; RESP 20; TEMP 38.8; O2SAT 90
[2022-11-08 19:25] VITALS: O2SAT 94
[2022-11-08 20:04] VITALS: PULSE 109; RESP 19; TEMP 38.5; O2SAT 90
[2022-11-08 20:46] LABS: IDNOW Serial# BCCEAD1C
[2022-11-08 20:47] LABS: Influenza A Negative (Negative); Influenza B2 Negative (Negative)
--- NOTE | 2022-11-08 21:14 | PC.NURSE ---
Assumed care of pt. at 1900. Pt. sleeping in bed with at bedside. 1:[address] Pt[address] VSS. Pending urine, which we will obtain upon waking. Respirations are even and unlabored. No distress noted. Will continue to monitor.
[2022-11-08 21:53] VITALS: BP 142/80; RESP 18; O2SAT 98
--- NOTE | 2022-11-08 22:53 | PC.NURSE ---
Pt. has Tylenol ordered, however pt. hasn't been alert and oriented to take it. Will hold for when awake.
[2022-11-09] VITALS: BP 151/73; PULSE 102; RESP 18; TEMP 37.3; O2SAT 98
--- NOTE | 2022-11-09 02:55 | PC.NURSE ---
Pt. remains asleep with at bedside and 1:1 at bedside. Respirations are even and unlabored, no distress noted.
--- NOTE | 2022-11-09 03:01 | MHC.EDTECH ---
per RN, holding off on blood draw.
[2022-11-09 03:38] LABS: Basophils Absolute Auto 0.1 X10*3/uL (0.0-0.2); Basophils Percent Auto 0.7 % (0-2); Eosinophils Absolute Auto 0.5 X10*3/uL (0.0-0.4); Eosinophils Percent Auto 3.5 % (0-4); Hematocrit 46.1 % (42.0-52.0); Hemoglobin 15.9 g/dl (14.0-18.0); Imm Gran Abs Auto 0.04 X10*3/uL (0.00-0.03); Imm Gran Pct Auto 0.3 % (0.0-0.4); Lymphocytes Percent Auto 13.6 % (20-40); MANUAL DIFF FLAG SCAN; Mean Corpuscular HGB Conc 34.5 g/dl (31.0-36.0); Mean Corpuscular Hemoglobin 30.1 pg (27.0-33.0); Mean Corpuscular Volume 87.1 fL (80.0-98.0); Mean Platelet Volume 9.4 fL (9.4-12.4); Monocytes Absolute Auto 1.8 X10*3/uL (0.1-1.2); Monocytes Percent Auto 12.7 % (2-11); Neutrophils Percent Auto 69.2 % (45-73); Platelet Count 158 X10*3/uL (160-400); Red Blood Count 5.29 X10*6/uL (4.60-5.80); Red Cell Distribution Width 12.4 % (11.0-16.0); SCAN SMEAR FLAG 1; White Blood Count 14.4 X10*3/uL (4.8-10.8)
[2022-11-09] MEDS: Acetaminophen 325 MG TABLET 975 MG PO (03:44)
[2022-11-09 03:46] LABS: Appearance Urine Clear; Color Urine Yellow; Glucose Urine UA Negative (Negative); Leukocyte Esterase Urine Negative (Negative); Nitrite Urine Negative (Negative); Specific Gravity - Urine 1.025 (1.005-1.025); UMIC TRIGGER UACC YES; Urine Blood Negative (Negative); Urine Ketones 40 mg/dL (Negative); Urine Protein 30 (1+) mg/dL (Neg-Trace)
[2022-11-09 03:49] LABS: Bacteria Urine None Seen (None Seen); Hyaline Casts Urine 0-2 /LPF (0-2); RBC Urine 0-2 /HPF (0-2); Squamous Epithelial Cell Urine 0-2 /HPF (0-2); WBC Urine 0-5 /HPF (0-5)
[2022-11-09 03:57] LABS: Amphetamine Screen Urine Not Detected (Not Detect); Barbiturates, Urine Not Detected (Not Detect); Benzodiazepines Screen Urine Not Detected (Not Detect); Cannabinoid Screen Urine POSITIVE (Not Detect); Cocaine Screen Urine POSITIVE (Not Detect); Fentanyl, urine POSITIVE (Not Detect); Opiate Screen Urine Not Detected (Not Detect); Phencyclidine Screen Urine Not Detected (Not Detect)
[2022-11-09 03:58] LABS: SLIDE REVIEW VERIFIED
[2022-11-09 05:08] VITALS: BP 123/81; PULSE 106; RESP 18; TEMP 37.3; O2SAT 96
--- NOTE | 2022-11-09 06:14 | PC.NURSE ---
Pt. slept through the night and awoke briefly and requested food and drinks which were provided to pt. Urine collected and analysis performed. Pt. pending care team at this time. Will continue to monitor.
--- NOTE | 2022-11-09 07:39 | PC.NURSE ---
Assumed care of gorge at 0700. Remains sleeping, in at beside. Patient awaiting care team evaluation. Repositioning independently, able to make needs known, 1:[address] for patient safety.
[2022-11-09 11:07] VITALS: BP 121/66; PULSE 77; RESP 18; O2SAT 99
[2022-11-09 12:00] VITALS: RESP 18
--- NOTE | 2022-11-09 19:38 | MHC.RECOVSUP ---
? Reason for consult: Recovery Support o Current location:[facility] o Identified substance use concern: KURT - cocaine? - Support ? ?Intervention: o Community resources provided o Harm reduction discussion ? Additional information:?Pt consultation with Care Team. Pt is interested harm reduction strategies which includes IOP and community resources. [employer] was able to offer pt pamphlets and additional information on community resources.
[2022-11-09] MEDS: Nicotine 21 MG PATCH.TD24 TRANSDERMA (19:52)
== END 2022-11-09 19:55 | disposition home or self-care (01) ==
PROVIDERS: Nurse Practitioner Family; Physician Assistant; Emergency Provider Student in an Organized Health Care Education/Training Program; PCP Family Medicine
DX: S60.512A Abrasion of left hand, initial encounter (principal); F23 Brief psychotic disorder; R45.851 Suicidal ideations; F14.151 Cocaine abuse with cocaine-induced psychotic disorder with hallucinations; F11.151 Opioid abuse with opioid-induced psychotic disorder with hallucinations; R00.0 Tachycardia, unspecified; X78.9XXA Intentional self-harm by unspecified sharp object, initial encounter; Y93.9 Activity, unspecified; Y92.9 Unspecified place or not applicable; Y99.9 Unspecified external cause status; Z20.822 Contact with and (suspected) exposure to COVID-19; Z20.828 Contact with and (suspected) exposure to other viral communicable diseases; Z79.899 Other long term (current) drug therapy; Z23 Encounter for immunization
CPT/HCPCS: 36415; 71045; 80053; 80143; 80179; 80307; 81001; 82077; 84484; 85025; 87502; 87635; 90471; 90715; 93005; 99285; S9485

== ENCOUNTER 2023-10-15 09:38 | Emergency (ER) | payer MEDICAID, SELFPAY ==
--- NOTE | ~2023-10-15 | XR_ITS ---
EXAMINATION: XR CHEST CLINICAL INFORMATION: Shortness of breath COMPARISON: Chest x-ray September 07, 2023 TECHNIQUE: Frontal view of the chest was obtained. FINDINGS: Cardiac silhouette is normal in size. The lungs are well aerated. There is no lobar consolidation. No pleural effusion or pneumothorax. XR/XR chest 1V IMPRESSION: No acute pulmonary pathology.
[2023-10-15 09:42] VITALS: BP 125/64; PULSE 83; RESP 16; TEMP 36.3; O2SAT 95; BMI 38.5
--- NOTE | 2023-10-15 10:00 | ECG_ITS ---
Test Reason : cp, sob Blood Pressure : / mmHG Vent. Rate : 056 BPM Atrial Rate : 056 BPM P-R Int : 152 ms QRS Dur : 090 ms QT Int : 374 ms P-R-T Axes : 018 072 039 degrees QTc Int : 360 ms Sinus bradycardia with marked sinus arrhythmia Otherwise normal ECG When compared with ECG of 08-NOV-2022 17:01, Vent. rate has decreased BY 75 BPM T wave inversion no longer evident in Inferior leads Referred By: Pratik Cantor Electronically Signed By:Arnold Rivera
--- NOTE | 2023-10-15 10:07 | ED_ITS ---
HPI - SOB/Dyspnea General Chief Complaint: Dyspnea Stated Complaint: Difficulty breathing Time Seen by Provider: 10/15/23 09:50 Source: patient Mode of arrival: ambulatory Limitations: no limitations History of Present Illness HPI Narrative: 33 years old male presented to emergency department complaining of shortness of breath for about 10 days. He is complaining of wheezing cough congestion. He has history of schizophrenia PTSD cocaine abuse Pertinent past history: other (Cocaine abuse) Onset (ago): day(s) (10) Context: recent illness Timing: constant Severity: moderate Exacerbating factors: nothing Relieving factors: nothing Associated symptoms: wheezing Related Data Home Medications Medication Instructions Recorded Confirmed albuterol sulfate 90 mcg/actuation 2 inh inhalation Q6-8H PRN Wheezing 11/09/22 11/09/22 aerosol inhaler (Ventolin HFA) Previous Rx's Medication Instructions Recorded albuterol sulfate 90 mcg/actuation 1 inh inhalation QID PRN shortness 10/15/23 aerosol inhaler of breath or wheezing #8.5 grams doxycycline monohydrate 100 mg 100 mg PO BID #14 caps 10/15/23 capsule prednisone 20 mg tablet 60 mg (3 x 20 mg) PO DAILY #12 tabs 10/15/23 Allergies Allergy/AdvReac Type Severity Reaction Status Date / Time fluoxetine [From Prozac] Allergy Hives Verified 10/15/23 09:47 prazosin Allergy Hives Verified 10/15/23 09:47 Review of Systems 2 Constitutional: Constitutional: Reports no additional constitutional complaints ENT: Reports system reviewed and no additional complaints, except as documented Respiratory: Respiratory: Reports wheezing Allergic/Immunologic: Allergic/Immunologic: Reports wheezing [facility] Past Medical History Attestation statement: The following information was validated with the patient. [facility] Narrative: Cocaine abuse/schizophrenia Source: unable to obtain Onset Date is defined in the Problem List Problems that require an onset date and time if occurred within 24 hrs of arrival to the ED Aortic Dissection and Rupture; Neurologic impairment; Cardiopulmonary Arrest; Endotracheal Intubation; Insertion or Replacement of Mechanical Circulatory Assist Device Social History Social History Alcohol intake: unknown Advance Directives: No Advance Directives Information Provided: No Physical Exam 2 Vital Signs: Vital Signs: Last Vital Signs Temp 98.4 F 01/21/24 11:18 Pulse 69 10/15/23 11:18 Resp 18 10/15/23 11:18 BP 118/60 10/15/23 11:18 Pulse Ox 96 10/15/23 11:18 O2 Del Method Nasal Cannula 10/15/23 11:18 O2 Flow Rate 2 10/15/23 11:18 BMI result Body Mass Index 38.5 Const: General: no acute distress, well developed, alert and awake N utritional Appearance: average body habitus Orientation/consciousness: p atient oriented x3 Limitations: no limitations HEENT: Head: Yes normal to inspection General nose exam: Normal external nose present Mouth: Normal oral and palatal mucosa present Neck: Neck: Yes normal visual inspection Chest: Chest palpation & inspection: normal inspection of the chest Resp: Effort & Inspection: normal respiratory effort Auscultation: rhonchi and wheezes Cardio: Jugular venous distension: no JVD Rate: regular rate Rhythm: r egular rhythm GI: Inspection: Yes normal to inspection Palpation (GI): Soft to palpation, not firm, nontender and no guarding Skin: General skin exam: no rashes or lesions noted, elasticity normal and turgor normal Lesions: no lesions Rashes: no rashes Neuro: General: patient oriented x3 Course Reevaluation(s) Reevaluation #1: pt refuses admission sign AMA understand risks Time: 12:11 Medications Administered Discontinued Medications Generic Name Dose Route Start Last Admin Trade Name Freq PRN Reason Stop Dose Admin Albuterol Sulfate 2.5 mg/ 0 mg 10/15/23 10:20 10/15/23 10:25 Albuterol/Ipratropium 3 ml INHALE 10/15/23 10:21 5 dose ONCE ONE Administration Methylprednisolone Sodium Succinate 125 mg 10/15/23 10:01 10/15/23 10:22 Methylprednisolone Sod Succ 125 Mg/2 Ml Vial IVPUSH 10/15/23 10:02 125 mg ONCE ONE Administration Medical Decision Making Medical Decision Making MDM Narrative: Patient presented with shortness of breath wheezing found to be hypoxic requiring 1 L oxygen. Advice was to hospitalize the patient however the patient wants to leave against medical advice. At this time the patient has a decision- making capacity he understands risk including signed AMA we will give him anyway prescription for albuterol prednisone and antibiotic Differential Diagnosis Differential Diagnoses: The differential diagnosis associated with the presentation includes Admission/Observation Consideration of admission/observation: Escalation of care including admission/observation considered refused admission Consult Healthcare Provider Management of the patient was discussed with: Hospitalist spoke with Dr Contreras Hospitalist but pt refused admission Lab Data MDM Lab Attestation statement: I reviewed the patient's lab results. 10/15/23 10:11 10/15/23 10:11 Labs: Lab Results 10/15/23 10/15/23 Range/Units 10:11 11:49 WBC 6.8 (4.8-10.8) X10*3/uL RBC 4.79 (4.60-5.80) X10*6/uL Hgb 14.3 (14.0-18.0) g/dl Hct 40.9 L (42.0-52.0) % MCV 85.4 (80.0-98.0) fL MCH 29.9 (27.0-33.0) pg MCHC 35.0 (31.0-36.0) g/dl RDW 11.9 (11.0-16.0) % Plt Count 179 (160-400) X10*3/uL MPV 9.5 (9.4-12.4) fL Immature Gran % (Auto) 0.3 (0.0-0.4) % Neut % (Auto) 50.2 (45-73) % Lymph % (Auto) 31.7 (20-40) % Cuming % (Auto) 8.3 (2-11) % Eos % (Auto) 8.6 H (0-4) % Baso % (Auto) 0.9 (0-2) % Lymph # (Auto) 2.1 (1.2-4.9) X10*3/uL Cuming # (Auto) 0.6 (0.1-1.2) X10*3/uL Eos # (Auto) 0.6 H (0.0-0.4) X10*3/uL Baso # (Auto) 0.1 (0.0-0.2) X10*3/uL Abs Immat Gran (auto) 0.02 (0.00-0.03) X10*3/uL Absolute Neuts (auto) 3.4 (2.0-8.3) x10*3/uL Absolute Nucleated RBC 0.000 (0.0-0.012) X10*3/uL Nucleated RBC % (auto) 0.0 (0.0-0.2) /100WBC O2 Saturation 92.0 % ABG pH at Pt Temp 7.38 (7.35-7.45) ABG pCO2 at Pt Temp 49 H (32-45) mmHg ABG pO2 at Pt Temp 66 L (83-108) mmHg ABG HCO3 29 H (22-26) mmol/L ABG Base Excess (Actual) 3.3 mmol/L Sodium 144 (135-145) mmol/L Potassium 4.1 (3.3-5.1) mmol/L Chloride 108 (96-108) mmol/L Carbon Dioxide 30 H (22-29) mmol/L Anion Gap 10 L (12-20) BUN 12 (9-16) mg/dL Creatinine 1.02 (0.5-1.4) mg/dL Estim Creat Clear Calc 108.1 Estimated GFR > 60 Random Glucose 112 (60-115) mg/dL Calcium 8.9 (8.4-10.2) mg/dL Total Bilirubin 0.7 (0.0-1.0) mg/dL AST 18 (5-37) U/L ALT 16 (0-40) U/L Alkaline Phosphatase 96 (39-117) U/L Troponin I High Sens < 2.7 D (<3.5-35.0) ng/L Total Protein 7.0 (6.5-8.0) g/dL Albumin 3.9 (3.5-5.0) g/dL Influenza Type A (PCR) NEGATIVE (Negative) Influenza Type B (PCR) NEGATIVE (Negative) RSV RNA Qual (PCR) NEGATIVE (Negative) SARS-CoV-2 RNA (RT-PCR) NEGATIVE (Negative) ABG Data Attestation ABG: I personally reviewed and interpreted this ABG as follows: Interpretation: Hypoxia CO2 retention Independent Interpretation I performed an independent interpretation of an: Plain X-Ray Interpretation: negative read by me Radiology Impression Discussion of test interpretation with radiology: I have reviewed the radiologist's reading. Radiologist Impression: Shortness of breath COMPARISON: Chest x-ray September 07, 2023 TECHNIQUE: Frontal view of the chest was obtained. FINDINGS: Cardiac silhouette is normal in size. The lungs are well aerated. There is no lobar consolidation. No pleural effusion or pneumothorax. XR/XR chest 1V IMPRESSION: No acute pulmonary pathology. Independent Historian Clinical information obtained from an independent historian. History obtained from or confirmed by: Other (Brother) External Record Review External record reviewed: Inpatient record Chronic Conditions Patient?s care impacted by: Other asthma Discharge Plan Discharge Clinical Impression: Asthma with exacerbation Patient Disposition: Left Against Medical Advice Instructions: Asthma (DC) Additional Instructions: You are . signing against medical advice, welcome to come back anytime, will call a prescription for albuterol prednisone and antibiotic to the pharmacy Prescriptions: New prednisone 20 mg tablet 60 mg PO DAILY Qty: 12 0RF doxycycline monohydrate 100 mg capsule 100 mg PO BID Qty: 14 0RF albuterol sulfate 90 mcg/actuation HFA aerosol inhaler 1 inh inhalation QID PRN (Reason: shortness of breath or wheezing) Qty: 8.5 0RF No Action albuterol sulfate [Ventolin HFA] 90 mcg/actuation HFA aerosol inhaler 2 inh INHALATION Q6-8H PRN (Reason: Wheezing)
[2023-10-15 10:15] LABS: MANUAL DIFF FLAG NO
[2023-10-15 10:16] LABS: Basophils Absolute Auto 0.1 X10*3/uL (0.0-0.2); Basophils Percent Auto 0.9 % (0-2); Eosinophils Absolute Auto 0.6 X10*3/uL (0.0-0.4); Eosinophils Percent Auto 8.6 % (0-4); Hematocrit 40.9 % (42.0-52.0); Hemoglobin 14.3 g/dl (14.0-18.0); Imm Gran Abs Auto 0.02 X10*3/uL (0.00-0.03); Imm Gran Pct Auto 0.3 % (0.0-0.4); Lymphocytes Absolute Auto 2.1 X10*3/uL (1.2-4.9); Lymphocytes Percent Auto 31.7 % (20-40); Mean Corpuscular Hemoglobin 29.9 pg (27.0-33.0); Mean Corpuscular Volume 85.4 fL (80.0-98.0); Mean Platelet Volume 9.5 fL (9.4-12.4); Monocytes Absolute Auto 0.6 X10*3/uL (0.1-1.2); Monocytes Percent Auto 8.3 % (2-11); Neutrophils Absolute Auto 3.4 x10*3/uL (2.0-8.3); Neutrophils Percent Auto 50.2 % (45-73); Platelet Count 179 X10*3/uL (160-400); Red Blood Count 4.79 X10*6/uL (4.60-5.80); Red Cell Distribution Width 11.9 % (11.0-16.0); White Blood Count 6.8 X10*3/uL (4.8-10.8)
[2023-10-15] MEDS: methylPREDNISolone Sod Succ 125 MG/2 ML VIAL IVPUSH (10:22)
[2023-10-15] MEDS: Albuterol Sulfate 2.5 MG, Albuterol/Iprat 2.5/0.5MG 3 ML 3 ML INHALE (10:25)
[2023-10-15 10:26] VITALS: PULSE 83; RESP 22; O2SAT 95
--- NOTE | 2023-10-15 10:26 | PC.NURSE ---
ambulated from waiting room with steady gait, IV established, labs drawn and sent. ekg obtained. respiratory at bedside with breathing treatment, medicated per the NOV. call contreras within reach.
[2023-10-15 10:37] LABS: Alanine Aminotransferase 16 U/L (0-40); Albumin Level 3.9 g/dL (3.5-5.0); Alkaline Phosphatase 96 U/L (39-117); Anion Gap 10 (12-20); Aspartate Amino Transferase 18 U/L (5-37); Bilirubin Total 0.7 mg/dL (0.0-1.0); Blood Urea Nitrogen 12 mg/dL (9-16); Calcium 8.9 mg/dL (8.4-10.2); Carbon Dioxide 30 mmol/L (22-29); Chloride 108 mmol/L (96-108); Creatinine Clr Calc Pharmacy 108.1; Estimated Glomerular Filt Rate > 60; Glucose Random 112 mg/dL (60-115); Potassium 4.1 mmol/L (3.3-5.1); Sodium 144 mmol/L (135-145)
[2023-10-15 10:49] LABS: Troponin-I High Sensitivity < 2.7 ng/L (<3.5-35.0)
--- NOTE | 2023-10-15 11:14 | PC.NURSE ---
Dr. Cantor notified patients O2 sats are 89% applied 4l via nasal cannula with improvement to 95%.
[2023-10-15 11:18] VITALS: BP 118/60; PULSE 69; RESP 18; TEMP 36.9; O2SAT 96
[2023-10-15 11:42] LABS: Influenza A PCR NEGATIVE (Negative); Influenza B PCR NEGATIVE (Negative); Resp Syncy Virus RNA Qual PCR NEGATIVE (Negative); SARS COV2 PCR INHOUSE NEGATIVE (Negative)
[2023-10-15 11:53] VITALS: O2SAT 91
[2023-10-15 11:56] LABS: ABG Base Excess 3.3 mmol/L; ABG HCO3 29 mmol/L (22-26); ABG pCO2 49 mmHg (32-45); ABG pH 7.38 (7.35-7.45); ABG pO2 66 mmHg (83-108)
[2023-10-15 12:03] LABS: ABG Refer to POC result
--- NOTE | 2023-10-15 12:32 | PC.NURSE ---
patient told provider he could not stay and would be leaving AMA. 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 patient understanding of risks of leaving. will return if needing to.
== END 2023-10-15 12:34 | disposition left against medical advice (07) ==
PROVIDERS: Emergency Provider Emergency Medicine; PCP Family Medicine
DX: J45.901 Unspecified asthma with (acute) exacerbation (principal); R07.89 Other chest pain; R06.02 Shortness of breath; R05.9 Cough, unspecified; F14.10 Cocaine abuse, uncomplicated; Z20.828 Contact with and (suspected) exposure to other viral communicable diseases; Z11.52 Encounter for screening for COVID-19
CPT/HCPCS: 0241U; 36415; 71045; 80053; 82803; 84484; 85025; 93005; 94640; 96374; 99284; 99285; J2930

== ENCOUNTER → 2023-10-15 10:00 | Outpatient (BNV) | payer MEDICAID, SELFPAY | PROVIDERS: Emergency Provider Emergency Medicine; PCP Family Medicine; Visit Provider Internal Medicine Cardiovascular Disease | DX: R00.1 Bradycardia, unspecified (principal) | CPT/HCPCS: 93010 ==

== ENCOUNTER 2023-11-03 12:28 | Outpatient (REF) | payer MEDICAID, SELFPAY ==
[2023-11-03 16:04] LABS: Influenza A PCR NEGATIVE (Negative); Influenza B PCR NEGATIVE (Negative); Resp Syncy Virus RNA Qual PCR NEGATIVE (Negative); SARS COV2 PCR INHOUSE NEGATIVE (Negative)
== END 2023-11-03 12:29 | disposition home or self-care (01) ==
LOC: HO.CHCLNP 12:28
PROVIDERS: Visit Provider Family Medicine
DX: Z11.52 Encounter for screening for COVID-19 (principal); Z20.822 Contact with and (suspected) exposure to COVID-19; J06.9 Acute upper respiratory infection, unspecified
CPT/HCPCS: 0241U

== ENCOUNTER 2023-11-06 09:53 | Outpatient (REF) | payer MEDICAID, SELFPAY ==
--- NOTE | ~2023-11-06 | XR_ITS ---
EXAMINATION: XR CHEST CLINICAL INFORMATION: Bronchitis. COMPARISON: 10/15/2023, 11/08/2022 chest radiographs. TECHNIQUE: 2 views of the chest were obtained. FINDINGS: Lung volumes are low. There is no gross pneumothorax. Bilateral perihilar opacities, left greater than right. No gross pleural effusion. S-shaped thoracolumbar scoliosis. XR/XR chest 2V IMPRESSION: Bilateral perihilar opacities, left greater than right, concerning for an inflammatory/infectious process. This study was presented today 11/07/2023 for interpretation. PSA staff will provide results to referring provider at this time.
== END 2023-11-06 09:54 | disposition home or self-care (01) ==
LOC: HO.XRAY 09:53
PROVIDERS: PCP Family Medicine; Visit Provider Family Medicine
DX: J40 Bronchitis, not specified as acute or chronic (principal)
CPT/HCPCS: 71046

== ENCOUNTER 2023-11-10 16:15 | Outpatient (REF) | payer MEDICAID, SELFPAY ==
[2023-11-10 18:13] LABS: Influenza A PCR NEGATIVE (Negative); Influenza B PCR NEGATIVE (Negative); Resp Syncy Virus RNA Qual PCR NEGATIVE (Negative); SARS COV2 PCR INHOUSE NEGATIVE (Negative)
== END 2023-11-10 16:16 | disposition home or self-care (01) ==
LOC: HO.CHCLNP 16:15
PROVIDERS: Visit Provider Internal Medicine
DX: Z11.52 Encounter for screening for COVID-19 (principal); Z20.822 Contact with and (suspected) exposure to COVID-19; J06.9 Acute upper respiratory infection, unspecified
CPT/HCPCS: 0241U

== ENCOUNTER 2023-12-01 15:19 | Outpatient (REF) | payer MEDICAID, SELFPAY ==
--- NOTE | ~2023-12-01 | XR_ITS ---
EXAMINATION: XR CHEST CLINICAL INFORMATION: Worsening cough for the last 2 months COMPARISON: 11/14/2023 TECHNIQUE: 2 views of the chest were obtained. FINDINGS: No significant abnormality is noted involving the heart, lungs, mediastinum, bony thorax or soft tissues. XR/XR chest 2V IMPRESSION: Unremarkable examination.
== END 2023-12-01 15:20 | disposition home or self-care (01) ==
LOC: HO.HHCX 15:19
PROVIDERS: Visit Provider Student in an Organized Health Care Education/Training Program
DX: R05.8 Other specified cough (principal)
CPT/HCPCS: 71046

== ENCOUNTER 2024-03-15 20:30 | Emergency (ER) | payer MEDICAID, SELFPAY ==
--- NOTE | ~2024-03-15 | XR_ITS ---
EXAMINATION: XR HAND, LEFT CLINICAL INFORMATION: Pain, injury. COMPARISON: None available. TECHNIQUE: PA, lateral, and oblique views of the left hand. FINDINGS: Very small age indeterminate approximately 1 mm ossific body adjacent to the ulnar aspect of the distal interphalangeal joint of the third digit. No evidence of subluxation. No significant soft tissue abnormality. XR/XR hand LT min 3V IMPRESSION: Very small ossific body adjacent to the distal interphalangeal joint of the third digit, age indeterminate that could be sequela of an avulsion fracture. Correlate with point tenderness.
[2024-03-15 20:32] VITALS: BP 153/87; PULSE 90; RESP 18; TEMP 36.6; O2SAT 96; BMI 27.4
--- NOTE | 2024-03-15 20:41 | ED.GENADULT ---
HPI - General Adult General Chief complaint: Wound/Laceration Stated complaint: L hand injury Time Seen by Provider: 03/15/24 22:17 Source: patient and RN notes reviewed Mode of arrival: ambulatory Limitations: no limitations History of Present Illness ED Provider: Carmen Serrano PA-C [facility] narrative: This is a 33-year-old male who presents emergency department with complaints of left hand pain since yesterday. Patient states that he was upset and punched. Wooden cabinet. He states he pulled his hand out of the cabinet, and noticed two cuts. He states that his last tetanus was several months ago. Denies any fevers or chills. He has left-handed. no other complaints or concerns at this time. MD complaint: Left hand pain Onset (ago): day(s) Radiation: non-radiation Severity: moderate Quality: aching Relieving factors: none Exacerbating factors: none Associated symptoms: denies other symptoms Treatments prior to arrival: none Related Data Home Medications ?Medication ?Instructions ?Recorded ?Confirmed albuterol sulfate 90 mcg/actuation 2 inh inhalation Q6-8H PRN Wheezing 11/09/22 11/09/22 aerosol inhaler (Ventolin HFA) Previous Rx's ?Medication ?Instructions ?Recorded albuterol sulfate 90 mcg/actuation 1 inh inhalation QID PRN shortness 10/15/23 aerosol inhaler of breath or wheezing #8.5 grams doxycycline monohydrate 100 mg 100 mg PO BID #14 caps 10/15/23 capsule prednisone 20 mg tablet 60 mg (3 x 20 mg) PO DAILY #12 tabs 10/15/23 Allergies Allergy/AdvReac Type Severity Reaction Status Date / Time fluoxetine [From Prozac] Allergy Hives Verified 03/15/24 20:34 prazosin Allergy Hives Verified 03/15/24 20:34 Review of Systems Review of Systems: Yes all other systems are reviewed and are negative Constitutional: Constitutional: Reports as per [facility] Social History Social History Alcohol intake: unknown Smoked in Last 30 Days: Yes Use of substances other than those prescribed or required for medical reasons: Yes Substance Use Type: Marijuana Advance Directives: No Advance Directives Information Provided: No Do you have a plan to hurt others: No Plan Physical Exam ED Vital Signs: Vital Signs - 24 hr 03/15/24 20:32 03/15/24 21:05 03/15/24 22:35 Temperature 98 F 99 F 98.9 F Pulse Rate 90 88 90 Respiratory Rate 18 18 18 Blood Pressure 153/87 H 140/87 H 140/80 H Pulse Oximetry 96 98 98 Oxygen Delivery Method Room Air Room Air Room Air BMI result Body Mass Index 27.4 Const General: cooperative, comfortable and no acute distress Orientation/consciousness: patient oriented x3 Limitations: no limitations HENMT Head: Yes normal to inspection, Yes normocephalic and Yes atraumatic Ears: hearing grossly normal bilaterally General nose exam: Normal external nose present Face and sinus: Yes normal facial exam Mouth: Normal oral and palatal mucosa present, oropharynx normal and moist mucous membranes Throat: Yes posterior oropharynx normal Eyes General: appearance normal, both eyes and all related structures Eyelids: Yes eyelids normal Conjunctivae: conjunctivae normal Sclerae: sclerae normal Pupils: Equal, round and reactive pupils present EOM: EOMs intact bilaterally Neck Neck: Yes normal visual inspection, Yes full ROM and Yes no lymphadenopathy Lymphatic: no lymphadenopathy noted Chest Chest palpation & inspection: normal inspection of the chest Resp Effort & Inspection: normal respiratory effort and able to speak in complete sentences Auscultation: clear to auscultation bilaterally, no crackles, no rales, no rhonchi and no wheezes Cardio Rate: regular rate Rhythm: regular rhythm Heart sounds: S1 normal heart sound present and S2 normal heart sound present GI Inspection: Yes normal to inspection Skin General skin exam: no rashes or lesions noted Trauma: no lacerations or abrasions Wounds: no wounds Neuro General: patient oriented x3 and moves all extremities Cranial nerves: Yes Equal, round and reactive pupils present Extrem Other: Left hand palmar aspect there are 2 superficial linear lacerations noted to the mid palm, no active bleeding or drainage. No surrounding erythema or warmth. No drainage. Full range of motion of the hand, able to oppose thumb to all digits. Strong radial pulse. General: Yes normal to inspection Right upper extremity: normal to inspection Left upper extremity: normal to inspection Right lower extremity: normal to inspection Left lower extremity: normal to inspection Course Course Course Narrative: RME performed by Sigrid Pickens PA-C. Patient is a 33 year old assigned male at presenting to the emergency department with left hand pain. Patient states he punched a wood cabinet and broke it yesterday and he has had persistent pain. Detailed physical exam and review of systems are deferred to the human services program specialist. Imaging ordered. Patient placed back in the waiting room pending room availability and results. Medical Decision Making Medical Decision Making MDM Narrative: This is a 33-year-old male who presents emergency department with complaints of left hand pain since yesterday. Patient states he was upset and punched a hole through a wooden cabinet. On arrival, mildly hypertensive at 140/87, all other vital signs within normal limits. Patient has 2 superficial abrasions noted to the palmar aspect of his left hand. X-rays were obtained which did not indicate any acute fracture. There is a sees bony deformity noted at the DIP of the 3rd digit, this area is nontender. This is unlikely a acute fracture. Given hand is nontender without any evidence of infection, discharged with strict return precautions. He understands and agrees with plan. He states that Patient stable for discharge. Differential Diagnosis Differential Diagnoses: The differential diagnosis associated with the presentation includes Fracture, contusion, abrasion, laceration, cellulitis Radiology Impression Discussion of test interpretation with radiology: I have reviewed the radiologist's reading. Radiologist Impression: XR/XR hand LT min 3V IMPRESSION: Very small ossific body adjacent to the distal interphalangeal joint of the third digit, age indeterminate that could be sequela of an avulsion fracture. Correlate with point tenderness. Dictated By: Isis Magaña Discharge Plan Discharge Clinical Impression: Hand pain, left, Abrasion Patient Disposition: Home, Self-Care Instructions: Contusion in Adults (ED) Additional Instructions: You were seen in the emergency department due to left hand pain. Your x-ray did not show any broken bones. The wounds do not appear to be infected. Keep areas clean and dry. Watch for any new or worsening symptoms including but not limited to worsening redness, swelling, fevers or chills. If any of these occur please seek emergent care. Prescriptions: No Action albuterol sulfate [Ventolin HFA] 90 mcg/actuation HFA aerosol inhaler 2 inh INHALATION Q6-8H PRN (Reason: Wheezing) prednisone 20 mg tablet 60 mg PO DAILY Qty: 12 0RF doxycycline monohydrate 100 mg capsule 100 mg PO BID Qty: 14 0RF albuterol sulfate 90 mcg/actuation HFA aerosol inhaler 1 inh inhalation QID PRN (Reason: shortness of breath or wheezing) Qty: 8.5 0RF Stand Alone Forms: Work/School Release Interventions: ED Discharge Assessment Last Done: 03/15/24 22:35 Discharge Date/Time: 03/15/24 22:38 Print Language: Macedonian
--- NOTE | 2024-03-15 21:04 | PC.NURSE ---
Pt ca&ox4, no signs of distress. Pt ambulates with a steady gait. Pt reports 7/10 hand pain. Plan of care ongoing.
[2024-03-15 21:05] VITALS: BP 140/87; PULSE 88; RESP 18; TEMP 37.2; O2SAT 98
[2024-03-15 22:35] VITALS: BP 140/80; PULSE 90; RESP 18; TEMP 37.2; O2SAT 98
== END 2024-03-15 22:38 | disposition home or self-care (01) ==
PROVIDERS: Emergency Provider Emergency Medicine; PCP Family Medicine
DX: S60.512A Abrasion of left hand, initial encounter (principal); M79.642 Pain in left hand; X83.8XXA Intentional self-harm by other specified means, initial encounter; Y93.9 Activity, unspecified; Y92.9 Unspecified place or not applicable; Y99.8 Other external cause status
CPT/HCPCS: 73130; 99283; 99284

== ENCOUNTER 2024-07-17 10:00 | Outpatient (REF) | payer MEDICAID, SELFPAY | END 2024-07-17 10:01 | disposition home or self-care (01) | LOC: HO.HOSX 10:00 | DX: Z13.89 Encounter for screening for other disorder (principal) ==

== ENCOUNTER 2024-07-22 10:49 | Emergency (ER) | payer MEDICAID, SELFPAY ==
--- NOTE | ~2024-07-22 | XR_ITS ---
EXAMINATION: XR CHEST CLINICAL INFORMATION: Shortness of breath and cough. COMPARISON: December 01, 2023 TECHNIQUE: 2 views of the chest were obtained. FINDINGS: The lungs are well expanded. There are subtle hazy perihilar opacities with peribronchial cuffing. No pleural effusion. Cardiac silhouette is within normal limits. XR/XR chest 2V IMPRESSION: Hazy perihilar opacities with peribronchial cuffing. Consider viral etiology. Electronically signed by: Brian Barajas MD 07/22/2024 12:03 PM EDT RP
--- NOTE | 2024-07-22 11:12 | ED.SOB ---
HPI - SOB/Dyspnea General Chief Complaint: Upper Respiratory Symptoms Stated Complaint: Pneumonia Time Seen by Provider: 07/22/24 13:13 History of Present Illness HPI Narrative: Patient complains of cough and runny nose for several days now the cough is worse and productive, as well as frequent use of his inhaler and wheezing at home Related Data Home Medications ?Medication ?Instructions ?Recorded ?Confirmed albuterol sulfate 90 mcg/actuation 2 inh inhalation Q6-8H PRN Wheezing 11/09/22 11/09/22 aerosol inhaler (Ventolin HFA) Previous Rx's ?Medication ?Instructions ?Recorded albuterol sulfate 90 mcg/actuation 1 inh inhalation QID PRN shortness 10/15/23 aerosol inhaler of breath or wheezing #8.5 grams doxycycline monohydrate 100 mg 100 mg PO BID #14 caps 10/15/23 capsule prednisone 20 mg tablet 60 mg (3 x 20 mg) PO DAILY #12 tabs 10/15/23 albuterol sulfate 2.5 mg/0.5 mL 5 mg inhalation Q6H PRN 07/22/24 solution for nebulization bronchospasm #30 ea albuterol sulfate 90 mcg/actuation 2 puff inhalation Q4-6H PRN 07/22/24 aerosol inhaler shortness of breath or wheezing #8.5 grams azithromycin 250 mg tablet 250 mg PO DAILY 4 days #4 tabs 07/22/24 (Zithromax) prednisone 20 mg tablet 60 mg (3 x 20 mg) PO DAILY 5 days 07/22/24 #15 tabs Allergies Allergy/AdvReac Type Severity Reaction Status Date / Time [facility] Allergy Hives Verified 07/22/24 11:13 prazosin Allergy Hives Verified 07/22/24 11:13 [facility] Social History Social History Alcohol intake: unknown Substance Use Type: Marijuana Advance Directives: No Advance Directives Information Provided: Yes Do you have a plan to hurt others: No Plan Physical Exam Vital Signs: Vital Signs: Last Vital Signs Temp 98.9 F 07/22/24 14:42 Pulse 84 07/22/24 15:40 Resp 16 07/22/24 15:40 BP 134/74 07/22/24 14:42 Pulse Ox 94 07/22/24 14:42 O2 Del Method Room Air 07/22/24 14:42 BMI result Body Mass Index 34.9 Course Course Course Narrative: This is a Rapid Medical Exam performed in triage by Grisel Welsh PA-C. Full HPI, ROS and PE to be performed by primary ED provider. 34 yo M presenting to the ED c/o subjective fever, loss of voice, SOB & productive cough x 4-5 days. Feel like its pneumonia. Admits to CP when coughing. Denies travel, sick contacts. PE: talking in complete sentences, dry cough noted, +exp wheeze throughout Plan: EKG, CXR, viral testing, ED bronch protocol Patient with worsening cough sputum and wheezing had chest x-ray showing hazy perihilar opacities, likely viral, but given the worsening cough and sputum he is treated for bronchitis with Zithromax He got 2 albuterol treatments in the ER with very significant improvement in his wheezing and was speaking full sentences no shortness of breath lungs were clear and full bilaterally wheezing resolved after treatments He is treated with Zithromax and prednisone and refills of his albuterol for home and patient is discharged Medications Administered Discontinued Medications Generic Name Dose Route Start Last Admin Trade Name Freq PRN Reason Stop Dose Admin Albuterol Sulfate 2.5 mg/ 0 mg 07/22/24 11:34 07/22/24 11:38 Albuterol/Ipratropium 3 ml INHALE 07/22/24 11:35 1 dose ONCE ONE Administration Albuterol Sulfate 2.5 mg/ 0 mg 07/22/24 15:35 07/22/24 15:38 Albuterol/Ipratropium 3 ml INHALE 07/22/24 15:36 1 dose ONCE ONE Administration Medical Decision Making Lab Data [facility] Lab Attestation statement: I reviewed the patient's lab results. Labs: Lab Results 07/22/24 Range/Units 12:16 Influenza Type A (PCR) NEGATIVE (Negative) Influenza Type B (PCR) NEGATIVE (Negative) RSV RNA Qual (PCR) NEGATIVE (Negative) SARS-CoV-2 RNA (RT-PCR) NEGATIVE (Negative) Discharge Plan Discharge Clinical Impression: Bronchitis, Asthma Patient Disposition: Home, Self-Care Additional Instructions: We are treating for bronchitis with Zithromax antibiotic For the asthma albuterol and prednisone Return any time for difficulty breathing any worse condition or any concerns COVID and flu testing were negative Prescriptions: New azithromycin [Zithromax] 250 mg tablet 250 mg PO DAILY 4 Days Qty: 4 0RF Rx Instructions: start on day 2 of therapy prednisone 20 mg tablet 60 mg PO DAILY 5 Days Qty: 15 0RF albuterol sulfate 2.5 mg/0.5 mL solution for nebulization 5 mg inhalation Q6H PRN (Reason: bronchospasm) Qty: 30 0RF albuterol sulfate 90 mcg/actuation HFA aerosol inhaler 2 puff inhalation Q4-6H PRN (Reason: shortness of breath or wheezing) Qty: 8.5 0RF No Action albuterol sulfate [Ventolin HFA] 90 mcg/actuation HFA aerosol inhaler 2 inh INHALATION Q6-8H PRN (Reason: Wheezing) prednisone 20 mg tablet 60 mg PO DAILY Qty: 12 0RF doxycycline monohydrate 100 mg capsule 100 mg PO BID Qty: 14 0RF albuterol sulfate 90 mcg/actuation HFA aerosol inhaler 1 inh inhalation QID PRN (Reason: shortness of breath or wheezing) Qty: 8.5 0RF Stand Alone Forms: Work/School Release Print Language: Turkmen
[2024-07-22 11:13] VITALS: BP 129/68; PULSE 95; RESP 20; TEMP 36.7; O2SAT 96; BMI 34.9
--- NOTE | 2024-07-22 11:15 | ECG_ITS ---
Test Reason : CP Blood Pressure : / mmHG Vent. Rate : 082 BPM Atrial Rate : 082 BPM P-R Int : 146 ms QRS Dur : 080 ms QT Int : 370 ms P-R-T Axes : 051 070 025 degrees QTc Int : 432 ms Normal sinus rhythm Normal ECG When compared with ECG of 15-OCT-2023 10:18, QT has lengthened Referred By: Grisel Welsh Electronically Signed By:PATRIC CHAMPION
[2024-07-22 11:35] VITALS: PULSE 95; RESP 20; O2SAT 97
[2024-07-22] MEDS: Albuterol Sulfate 2.5 MG, Albuterol/Iprat 2.5/0.5MG 3 ML 3 ML INHALE ×2 (11:38→15:38)
[2024-07-22 13:08] LABS: Influenza A PCR NEGATIVE (Negative); Influenza B PCR NEGATIVE (Negative); Resp Syncy Virus RNA Qual PCR NEGATIVE (Negative); SARS COV2 PCR INHOUSE NEGATIVE (Negative)
[2024-07-22 14:42] VITALS: BP 134/74; PULSE 84; RESP 20; TEMP 37.2; O2SAT 94
[2024-07-22 15:40] VITALS: PULSE 84; RESP 16; O2SAT 98
[2024-07-22] MEDS: Azithromycin 500 MG TABLET PO (16:53)
[2024-07-22] MEDS: predniSONE 20 MG TABLET 60 MG PO (16:53)
[2024-07-22 16:58] VITALS: PULSE 98; RESP 18; TEMP 37.1; O2SAT 97
[2024-07-22 16:59] VITALS: BP 0/0; PULSE 98; RESP 18; TEMP 37.1; O2SAT 97
== END 2024-07-22 16:59 | disposition home or self-care (01) ==
PROVIDERS: Physician Assistant; Emergency Provider Emergency Medicine; PCP Family Medicine
DX: J40 Bronchitis, not specified as acute or chronic (principal); J45.909 Unspecified asthma, uncomplicated; Z03.818 Encounter for observation for suspected exposure to other biological agents ruled out
CPT/HCPCS: 0241U; 71046; 93005; 94640; 99284

== ENCOUNTER → 2024-07-22 11:15 | Outpatient (BNV) | payer MEDICAID, SELFPAY | PROVIDERS: Emergency Provider Emergency Medicine; PCP Family Medicine; Visit Provider Internal Medicine | DX: R07.9 Chest pain, unspecified (principal) | CPT/HCPCS: 93010 ==

== ENCOUNTER 2024-09-18 18:18 | Emergency (ER) | payer MEDICAID, SELFPAY ==
--- NOTE | ~2024-09-18 | XR_ITS ---
EXAMINATION: XR CHEST CLINICAL INFORMATION: Coughing. Pneumonia? COMPARISON: Chest radiograph 07/22/2024 TECHNIQUE: Frontal view of the chest was obtained. FINDINGS: No significant abnormality is noted involving the heart, lungs, mediastinum, bony thorax or soft tissues. XR/XR chest 1V IMPRESSION: Unremarkable examination. Electronically signed by: Homero Knight MD 09/18/2024 07:21 PM [facility]
[2024-09-18 18:20] VITALS: BP 124/75; PULSE 117; RESP 22; TEMP 37.2; O2SAT 96; BMI 38.1
--- NOTE | 2024-09-18 18:22 | ED.GENADULT ---
HPI - General Adult General Chief complaint: Upper Respiratory Symptoms Stated complaint: Chest pain, SOB, Fibral Time Seen by Provider: 09/18/24 19:37 Source: patient Limitations: no limitations History of Present Illness ED Provider: Evangelina Smith PA-C HPI narrative: 34-year-old male with a history of asthma presents with cough cold symptoms x3 days. Associated nasal congestion, sore throat, dry cough with fevers. Patient states he has family members sick with RSV. Denies shortness of breath or chest pain. Denies nausea or vomiting. Related Data Home Medications ?Medication ?Instructions ?Recorded ?Confirmed albuterol sulfate 90 mcg/actuation 2 inh inhalation Q6-8H PRN Wheezing 11/09/22 11/09/22 aerosol inhaler (Ventolin HFA) Previous Rx's ?Medication ?Instructions ?Recorded albuterol sulfate 90 mcg/actuation 1 inh inhalation QID PRN shortness 10/15/23 aerosol inhaler of breath or wheezing #8.5 grams doxycycline monohydrate 100 mg 100 mg PO BID #14 caps 10/15/23 capsule prednisone 20 mg tablet 60 mg (3 x 20 mg) PO DAILY #12 tabs 10/15/23 albuterol sulfate 2.5 mg/0.5 mL 5 mg inhalation Q6H PRN 07/22/24 solution for nebulization bronchospasm #30 ea albuterol sulfate 90 mcg/actuation 2 puff inhalation Q4-6H PRN 07/22/24 aerosol inhaler shortness of breath or wheezing #8.5 grams azithromycin 250 mg tablet 250 mg PO DAILY 4 days #4 tabs 07/22/24 (Zithromax) prednisone 20 mg tablet 60 mg (3 x 20 mg) PO DAILY 5 days 07/22/24 #15 tabs albuterol sulfate 2.5 mg/3 mL 2.5 mg (3 mL) inhalation Q6H PRN 09/18/24 (0.083 %) solution for nebulization shortness of breath or wheezing #75 mL albuterol sulfate 90 mcg/actuation 2 puff inhalation Q4-6H PRN 09/18/24 aerosol inhaler shortness of breath or wheezing #6.7 grams Allergies Allergy/AdvReac Type Severity Reaction Status Date / Time fluoxetine [From Prozac] Allergy Hives Verified 09/18/24 18:22 prazosin Allergy Hives Verified 09/18/24 18:22 Review of Systems Review of Systems: Yes all other systems are reviewed and are negative Constitutional: Constitutional: Reports fatigue, Reports fever(s) and Reports malaise Cardiovascular: Cardiovascular: Denies chest pain and Denies dyspnea Respiratory: Respiratory: Reports cough, Denies dyspnea and Denies wheezing Gastrointestinal: Gastrointestinal: Denies abdominal pain, Denies nausea and Denies vomiting Endocrine: Endocrine: Reports fatigue Allergic/Immunologic: Allergic/Immunologic: Denies wheezing PMFSH Past Medical History Attestation statement: The following information was validated with the patient. Social History Social History Alcohol intake: unknown Substance Use Type: Marijuana Advance Directives: No Advance Directives Information Provided: No Physical Exam ED Vital Signs: Vital Signs - 24 hr 09/18/24 18:20 09/18/24 19:30 09/18/24 20:44 Temperature 99 F 100.8 F H 100.8 F H Pulse Rate 117 H 104 H 104 H Respiratory Rate 22 H 20 20 Blood Pressure 124/75 0/0 L Pulse Oximetry 96 96 96 Oxygen Delivery Method Room Air T-Piece Room Air T-Piece BMI result Body Mass Index 38.1 Const Other: Alert, well-appearing Orientation/consciousness: patient oriented x3 HENMT Other: Rhinorrhea Resp Other: Nonlabored respirations, no wheezing, Cardio Other: Normal peripheral perfusion Skin Other: Warm dry no rash Neuro General: patient oriented x3, no focal motor deficits and CN's II-XI intact bilaterally Psych Other: Calm cooperative Course Course Course Narrative: RME: 34 yold male presents to the ED for URI symptoms. Son tested positive for RSV. SARS, strep, and chest xray ordered. Medications Administered Discontinued Medications Generic Name Dose Route Start Last Admin Trade Name Freq PRN Reason Stop Dose Admin Acetaminophen 975 mg 09/18/24 19:37 09/18/24 19:44 Acetaminophen 325 Mg Tablet PO 09/18/24 19:38 975 mg ONCE ONE Administration Medical Decision Making Medical Decision Making [facility] Narrative: 34-year-old male with a history of asthma presents with cough cold symptoms x3 days. Associated nasal congestion, sore throat, dry cough with fevers. Patient states he has family members sick with RSV. Denies shortness of breath or chest pain. Denies nausea or vomiting. Problem: Asthma History: Per patient I have considered the following differential diagnoses: Asthma exacerbation, viral syndrome, pneumonia, bronchitis, strep pharyngitis Plan: Screening labs including viral panel, strep screen and chest x-ray obtained from triage. Patient positive for RSV. He needs an inhaler, his asthma is not currently exacerbated, he does not require steroid. Strep pharyngitis was least likely given concurrent viral symptoms. I have independently reviewed the following tests: Labs: No leukocytosis, not anemic, no electrolyte abnormality, viral panel positive for RSV, rapid strep negative Chest x-ray:RDER #: [id number] XR/XR chest 1V IMPRESSION: Unremarkable examination. Electronically signed by: Homero Knight MD 09/18/2024 07:21 PM [facility] Lab Data 09/18/24 19:38 09/18/24 19:38 Labs: Lab Results 09/18/24 09/18/24 09/18/24 Range/Units 18:29 19:38 19:42 WBC 8.4 (4.8-10.8) X10*3/uL RBC 4.85 (4.60-5.80) X10*6/uL Hgb 14.9 (14.0-18.0) g/dl Hct 41.9 L (42.0-52.0) % MCV 86.4 (80.0-98.0) fL MCH 30.7 (27.0-33.0) pg MCHC 35.6 (31.0-36.0) g/dl RDW 12.1 (11.0-16.0) % Plt Count 168 (160-400) X10*3/uL MPV 9.7 (9.4-12.4) fL Immature Gran % (Auto) 0.4 (0.0-0.4) % Neut % (Auto) 66.8 (45-73) % Lymph % (Auto) 14.9 L (20-40) % [place] % (Auto) 12.4 H (2-11) % Eos % (Auto) 4.9 H (0-4) % Baso % (Auto) 0.6 (0-2) % Lymph # (Auto) 1.3 (1.2-4.9) X10*3/uL [place] # (Auto) 1.0 (0.1-1.2) X10*3/uL Eos # (Auto) 0.4 (0.0-0.4) X10*3/uL Baso # (Auto) 0.1 (0.0-0.2) X10*3/uL Abs Immat Gran (auto) 0.03 (0.00-0.03) X10*3/uL Absolute Neuts (auto) 5.6 (2.0-8.3) x10*3/uL Absolute Nucleated RBC 0.000 (0.0-0.012) X10*3/uL Nucleated RBC % (auto) 0.0 (0.0-0.2) /100WBC PT 11.5 (10.9-12.4) SEC INR 1.0 (0.9-1.1) Sodium 138 (135-145) mmol/L Potassium 3.6 (3.3-5.1) mmol/L Chloride 106 (96-108) mmol/L Carbon Dioxide 23 (22-29) mmol/L Anion Gap 13 (12-20) BUN 10 (9-16) mg/dL Creatinine 0.91 (0.5-1.4) mg/dL Estim Creat Clear Calc 119.4 Estimated GFR > 60 Random Glucose 91 (60-115) mg/dL Calcium 8.5 (8.4-10.2) mg/dL Magnesium 1.7 (1.6-2.6) mg/dL Total Bilirubin 0.9 (0.0-1.0) mg/dL AST 37 (5-37) U/L ALT 37 (0-40) U/L Alkaline Phosphatase 87 (39-117) U/L Troponin I High Sens < 2.7 (<3.5-35.0) ng/L Total Protein 6.7 (6.5-8.0) g/dL Albumin 3.9 (3.5-5.0) g/dL Urine Color Yellow Urine Appearance Clear Urine pH 7.0 (5.0-9.0) Ur Specific [place] >= 1.030 H (1.005-1.025) Urine Protein Trace (Neg-Trace) mg/dL Urine Glucose (UA) Negative (Negative) mg/dL Urine Ketones Trace (Negative) mg/dL Urine Blood Moderate (2+) H (Negative) Urine Nitrite Negative (Negative) Ur Leukocyte Esterase Negative (Negative) Urine RBC >20 H (0-2) /HPF Urine WBC 0-5 (0-5) /HPF Ur Squamous Epith Cells 0-2 (0-2) /HPF Urine Bacteria None Seen (None Seen) Hyaline Casts 0-2 (0-2) /LPF Influenza Type A (PCR) NEGATIVE (Negative) Influenza Type B (PCR) NEGATIVE (Negative) RSV RNA Qual (PCR) POSITIVE A (Negative) SARS-CoV-2 RNA (RT-PCR) NEGATIVE (Negative) S. pyogenes GrpA ANGELIKA Negative (Negative) Discharge Plan Discharge Clinical Impression: Acute viral syndrome Patient Disposition: Home, Self-Care Instructions: Viral Syndrome (ED) Additional Instructions: You screened positive for RSV, this is a viruses with circulating within the community. The remainder of your labs were normal, the chest x-ray is clear. See home care instructions. You can continue to use sjes-mbf-sjjgoik Mucinex for your congestion. You could add gkri-urp-sddkbsq Zyrtec, this will help the congestion as well. For fevers and body aches, you can alternate fcue-stx-cnecawk ibuprofen 600 mg taken every 6 hours with food, with wjcb-wjb-vriwmgw Tylenol 1000 mg taken every 8 hours. Use your inhalers as needed. Follow up with your primary care provider as needed. Prescriptions: New albuterol sulfate 90 mcg/actuation HFA aerosol inhaler 2 puff inhalation Q4-6H PRN (Reason: shortness of breath or wheezing) Qty: 6.7 0RF albuterol sulfate 2.5 mg /3 mL (0.083 %) solution for nebulization 2.5 mg inhalation Q6H PRN (Reason: shortness of breath or wheezing) Qty: 75 0RF No Action albuterol sulfate [Ventolin HFA] 90 mcg/actuation HFA aerosol inhaler 2 inh INHALATION Q6-8H PRN (Reason: Wheezing) prednisone 20 mg tablet 60 mg PO DAILY Qty: 12 0RF doxycycline monohydrate 100 mg capsule 100 mg PO BID Qty: 14 0RF albuterol sulfate 90 mcg/actuation HFA aerosol inhaler 1 inh inhalation QID PRN (Reason: shortness of breath or wheezing) Qty: 8.5 0RF azithromycin [Zithromax] 250 mg tablet 250 mg PO DAILY 4 Days Qty: 4 0RF Rx Instructions: start on day 2 of therapy prednisone 20 mg tablet 60 mg PO DAILY 5 Days Qty: 15 0RF albuterol sulfate 2.5 mg/0.5 mL solution for nebulization 5 mg inhalation Q6H PRN (Reason: bronchospasm) Qty: 30 0RF albuterol sulfate 90 mcg/actuation HFA aerosol inhaler 2 puff inhalation Q4-6H PRN (Reason: shortness of breath or wheezing) Qty: 8.5 0RF Stand Alone Forms: Work/School Release Interventions: ED Discharge Assessment Last Done: 09/18/24 20:44 Discharge Date/Time: 09/18/24 20:45 Print Language: French
[2024-09-18 18:42] LABS: IDNOW Serial# 58CA691E; Strep A Nucleic Acid Negative (Negative)
[2024-09-18 19:30] VITALS: PULSE 104; RESP 20; TEMP 38.2; O2SAT 96
[2024-09-18 19:43] LABS: MANUAL DIFF FLAG NO
[2024-09-18 19:43] LABS: Influenza A PCR NEGATIVE (Negative); Influenza B PCR NEGATIVE (Negative); Resp Syncy Virus RNA Qual PCR POSITIVE (Negative); SARS COV2 PCR INHOUSE NEGATIVE (Negative)
[2024-09-18] MEDS: Acetaminophen 325 MG TABLET 975 MG PO (19:44)
[2024-09-18 19:49] LABS: Appearance Urine Clear; Color Urine Yellow; Glucose Urine UA Negative (Negative); Leukocyte Esterase Urine Negative (Negative); Nitrite Urine Negative (Negative); Specific Gravity - Urine >= 1.030 (1.005-1.025); UMIC TRIGGER UACC YES; Urine Blood Moderate (2+) (Negative); Urine Ketones Trace mg/dL (Negative); Urine Protein Trace mg/dL (Neg-Trace)
[2024-09-18 19:57] LABS: Basophils Absolute Auto 0.1 X10*3/uL (0.0-0.2); Basophils Percent Auto 0.6 % (0-2); Eosinophils Absolute Auto 0.4 X10*3/uL (0.0-0.4); Eosinophils Percent Auto 4.9 % (0-4); Hematocrit 41.9 % (42.0-52.0); Hemoglobin 14.9 g/dl (14.0-18.0); Imm Gran Abs Auto 0.03 X10*3/uL (0.00-0.03); Imm Gran Pct Auto 0.4 % (0.0-0.4); Lymphocytes Absolute Auto 1.3 X10*3/uL (1.2-4.9); Lymphocytes Percent Auto 14.9 % (20-40); Mean Corpuscular HGB Conc 35.6 g/dl (31.0-36.0); Mean Corpuscular Hemoglobin 30.7 pg (27.0-33.0); Mean Corpuscular Volume 86.4 fL (80.0-98.0); Mean Platelet Volume 9.7 fL (9.4-12.4); Monocytes Percent Auto 12.4 % (2-11); Neutrophils Absolute Auto 5.6 x10*3/uL (2.0-8.3); Neutrophils Percent Auto 66.8 % (45-73); Platelet Count 168 X10*3/uL (160-400); Red Blood Count 4.85 X10*6/uL (4.60-5.80); Red Cell Distribution Width 12.1 % (11.0-16.0); White Blood Count 8.4 X10*3/uL (4.8-10.8)
[2024-09-18 19:59] LABS: Prothrombin Time 11.5 SEC (10.9-12.4)
[2024-09-18 20:02] LABS: Alanine Aminotransferase 37 U/L (0-40); Albumin Level 3.9 g/dL (3.5-5.0); Alkaline Phosphatase 87 U/L (39-117); Anion Gap 13 (12-20); Aspartate Amino Transferase 37 U/L (5-37); Bilirubin Total 0.9 mg/dL (0.0-1.0); Blood Urea Nitrogen 10 mg/dL (9-16); Calcium 8.5 mg/dL (8.4-10.2); Carbon Dioxide 23 mmol/L (22-29); Chloride 106 mmol/L (96-108); Creatinine Clr Calc Pharmacy 119.4; Estimated Glomerular Filt Rate > 60; Glucose Random 91 mg/dL (60-115); Magnesium 1.7 mg/dL (1.6-2.6); Potassium 3.6 mmol/L (3.3-5.1); Sodium 138 mmol/L (135-145); Total Protein 6.7 g/dL (6.5-8.0)
[2024-09-18 20:12] LABS: Troponin-I High Sensitivity < 2.7 ng/L (<3.5-35.0)
[2024-09-18 20:41] LABS: Bacteria Urine None Seen (None Seen); Hyaline Casts Urine 0-2 /LPF (0-2); RBC Urine >20 /HPF (0-2); Squamous Epithelial Cell Urine 0-2 /HPF (0-2); WBC Urine 0-5 /HPF (0-5)
[2024-09-18 20:44] VITALS: BP 0/0; PULSE 104; RESP 20; TEMP 38.2; O2SAT 96
[2024-09-19 20:42] LABS: B Type Natriuretic Peptide < 10 pg/mL (<100)
== END 2024-09-18 20:45 | disposition home or self-care (01) ==
PROVIDERS: Physician Assistant; Emergency Provider Emergency Medicine; PCP Family Medicine
DX: B34.9 Viral infection, unspecified (principal); R07.89 Other chest pain; R06.02 Shortness of breath; R05.9 Cough, unspecified; Z03.818 Encounter for observation for suspected exposure to other biological agents ruled out; Z79.899 Other long term (current) drug therapy
CPT/HCPCS: 0241U; 36415; 71045; 80053; 81001; 81003; 83735; 83880; 84484; 85025; 85610; 87651; 99283

== ENCOUNTER 2024-12-18 14:44 | Outpatient (REF) | payer MEDICAID, SELFPAY ==
[2024-12-18 18:47] LABS: Alanine Aminotransferase 36 U/L (0-40); Albumin Level 4.2 g/dL (3.5-5.0); Alkaline Phosphatase 103 U/L (39-117); Anion Gap 10 (12-20); Aspartate Amino Transferase 38 U/L (5-37); Bilirubin Total 0.7 mg/dL (0.0-1.0); Blood Urea Nitrogen 10 mg/dL (9-16); Calcium 8.9 mg/dL (8.4-10.2); Carbon Dioxide 25 mmol/L (22-29); Chloride 109 mmol/L (96-108); Estimated Glomerular Filt Rate > 60; Glucose Random 77 mg/dL (60-115); Potassium 3.8 mmol/L (3.3-5.1); Sodium 140 mmol/L (135-145); Total Protein 7.1 g/dL (6.5-8.0)
[2024-12-18 19:05] LABS: TSH reflex Free T4 1.63 uIU/mL (0.32-4.0)
[2024-12-18 19:18] LABS: Folate 14.4 ng/mL (> or = 4.0); Vitamin B12 602 pg/mL (200-900)
[2024-12-19 12:48] LABS: RPR Rapid Plasma Reagin NON-REACTIVE (NON-REACTIVE)
== END 2024-12-18 14:45 | disposition home or self-care (01) ==
LOC: HO.CHCLDS 14:44
PROVIDERS: Visit Provider Internal Medicine
DX: Z71.1 Person with feared health complaint in whom no diagnosis is made (principal)
CPT/HCPCS: 36415; 80053; 82607; 82746; 84443; 86592

== ENCOUNTER 2024-12-24 12:56 | Outpatient (REF) | payer MEDICAID, SELFPAY ==
--- OUTSIDE RECORDS SUMMARY | 2024-12-24 15:06 | XMS_ITS | Encounter Summary ---
Author Organization [employer] Address [address] [place] [address] [place] [address] Care Team Providers Care Radiation Oncologist Name Role Phone Tiffani Beatty MD Primary Care Provider [phone] Reason for Referral * Imaging (Routine) - Authorized Specialty Diagnoses / Procedures Referred By Kimberly leigh Referred To Contact Radiology Diagnoses Transaminitis Procedures US Abdomen Complete Kamilla Sibley MD [address] [place] [address] Phone: tel: fax: [address] Phone: tel: fax: Referral ID Status Reason Start Date Expiration Date V isits Requested Visits Authorized [id number] Authorized 12/19/2024 12/19/2025 1 1 Encounter Details Date Type Department Care Team (Late st Contact Info) Description 12/19/[address] [facility] [address] [place] [address] Kamilla Sibley MD [address] [place], [place] [id number] Transaminitis (Primary Dx) Social History Tobacco Use Types Packs/Day Years Used Date Smoking Tobacco: Every Day Cigarettes Smokeless Tobacco: Never Depression Answer Date Recorded Patient Health Questionnaire-9 Score 14 11/03/2023 Patient Health Questionnaire-9 Score 14 11/03/2023 Last PHQ-9: Questionnaire Data Not on file 0 11/03/2023 Housing Stability Answer Date Recorded What is your housing situation today? I have hailey cantu 10/25/[address] you li ve. Do you have problems with any of the following? None of the above 10/25/2023 Food Insecurity Answer Date Recorded Within the past 12 months, y ou worried that your food would run out before you got money to buy more: Never True 10/25/2023 Within the past 12 months,th e food you bought just didn't last and you didn't have enough money to get more: Never True Transportation Answer Date Recorded In the past 12 months, has l ack of transportation kept you from medical appts, meetings, work or from getting things needed for daily living? No 10/25/2023 Utilities Answer Date Recorded In the past 12 months, has t he electric, gas, oil or water company threatened to shut off services in your home? No 10/25/2023 Depression Answer Date Recorded Patient Health Questionnaire-2 Score 4 11/03/2023 Sex and Gender Information Value Date Recorded Sex Assigned at Male 07/25/2022 10:40 AM EDT Legal Sex Male 10:40 AM EDT Gender Identity Male 07/25/2022 10:40 AM EDT Sexual Orientation Straight 07/25/2022 10 :40 AM EDT documented as of this encounter Plan of Treatment Scheduled Orders Name Type Priority Associated Diagnoses Orde r Schedule Hepatitis A,B,C Profile Lab Routine Transaminitis Expected: 12/19/2024, Expires: 12/19/2025 US Abdomen Complete Imaging Routine Transaminitis Expected: 12/19/2024, Expires: 12/19/2025 documented as of this encounter Visit Diagnoses Diagnosis Transaminitis- Primary Nonspecific elevation of levels of transaminase or lactic acid dehydrogenase (LDH) documented in this encounter Additional Health Concerns Assessment Noted Time PHQ-9 Depression Total Score: 14 024 1:23 PM EST documented as of this encounter Care Teams Radiation Oncologist Relationship Specialty Start Date End Date Tiffani Beatty MD [address] [place] [address] PCP - General Family Medicine 04/11/22 documented as of this encounter
--- OUTSIDE RECORDS SUMMARY | 2024-12-24 15:06 | XMS_ITS | Encounter Summary ---
Author Organization [employer] Address [address] [place] [address] [address] [place] [address] Care Team Providers Care Area Director Name Role Phone Tiffani Bains MD Primary Care Provider [phone] Reason for Visit * Reason Onset Date Comments Nurse Triage 06/11/2024 Encounter Details Date Type Department Care Team ([facility] st Contact Info) Description 06/11/2024 Telephone [facility] [address] [place] [address] Tiffani Bains MD [address] [place] [address] Nurse Triage Social History Tobacco Use Types Packs/Day Years [...] AM EDT documented as of this encounter Miscellaneous Notes * Telephone Encounter - Tiffani Bains MD - 06/26/2024 2:05 PM EDT Note signed, thanks! * Telephone Encounter - Michaela De Santiago - 06/25/2024 10:36 AM EDT Please sign chart note from 06/17 in order to proceed with referrals. Thank you. * Telephone Encounter - Syl Wu RN - 06/11/2024 1:52 PM EDT Triage call Pt reports right shoulder pain and low back pain. Low back pain is chronic due to hipsbeing uneven . Pt PCP has evaluated low back pain before. Right shoulder pain has started 2 weeks ago , denies injury and is progressively more painful. Pt is able to lift right arm above head but, with pain. Pt reports pain seems to be around the right clavicle area and radiates to right shoulder. Sometimes radiates to right arm and hand causing some numbness in right hand. Pt is able to continue normal activities and continues to go to work daily. Pt is taking tylenol/motrin and using ice/heat with little effect. Pt requests to see PCP. ASK apt with Dr. bains 06/17/24 @ 330pm. Insurance is verified as active prior to booking. Protocol Used: Shoulder Pain (Adult) Protocol-Based Disposition: See in Office or Video Visit within 2 Weeks Video visit not offered Positive Triage Question: * Mild pain (e.g., does not interfere with normal activities) and present > 7 days * All higher-acuity triage questions were negative Care Advice Discussed: * Reassurance and Education - Shoulder Pain * Pain Medicines * Pain Medicines - Extra Notes and Warnings * Reasons To Call Back - Chest pain or difficulty breathing occurs - Moderate pain (such as interferes with normal activities) lasts over 3 days - Mild pain lasts over 7 days - You become worse * Use a Cold Pack for Pain * Use Heat After 48 Hours for Pain * Telephone Encounter - Angy Ruiz - 06/11/2024 1:19 PM EDT Symptoms: Shoulder Pain - Not From Injury, Back Pain - Not From Injury Outcome: Schedule an appointment to be seen within 24 hours Reason: Caller denied all higher acuity questions The caller accepted this outcome. Contact pt at [phone] documented in this encounter Plan of Treatment Not on file documented as of this encounter Visit Diagnoses Not on filedocumented in this encounter Additional Health Concerns Assessment Noted Time PHQ-9 Depression Total Score: 14 024 1:23 PM EST documented as of this encounter Care Teams Area Director Relationship Specialty Start Date End Date Tiffani Bains MD [address] [place] [address] PCP - General Family Medicine 04/11/22 documented as of this encounter
--- OUTSIDE RECORDS SUMMARY | 2024-12-24 15:07 | XMS_ITS | Clinical Summary ---
Author Organization [employer] Address [address] [facility] 7[address] [place] [address] Care Team Providers Care Metal Room Dental Technician Name Role Phone Tiffani Beatty MD Primary Care Provider [phone] Allergies Active Allergy Reactions Criticality Noted Date Comments Prazosin Unknown 04/11/2022 Medications * This document contains information received from the source organization and may not represent a complete record from that organization. acetaminophen (Tylenol Extra Strength) 500 MG tabletIndications :Viral upper respiratory illness Take 1-2 tablets by mouth every 6 hours as needed for pain or fever 30 tablet 1 09/22/20 22 Active Suboxone 12-3 MG per sublingual film TAKE 1 FILM SUBLINGUAL ONCE A DAY 10/15/19 24 Active cetirizine (ZyrTEC) 10 MG tablet TAKE 1 TABLET BY MOUTH EVERY DAY NEEDED NOT COVERED 10/06/19 24 Active albuterol 108 (90 Base) MCG/ACT inhalerIndication s:Viral upper respiratory illness Inhale 2 puffs every 6 (six) hours if needed for wheezing. 18 g 1 12/01/19 24 Active albuterol (2.5 MG/3ML) 0.083% nebulizer solution Take 3 mL (2.5 mg) by nebulization every 6 (six) hours if needed for wheezing. 75 mL 11 12/01/19 24 Active montelukast (Singulair) 10 MG tablet Take 1 tablet (10 mg) by mouth in the morning. 90 tablet 12/01/19 24 Active nicotine polacrilex (Nicorette) 4 MG gum Chew 1 each (4 mg) every 2 (two) hours if needed for smoking cessation. 100 each 12/01/19 24 Active hydrOXYzine pamoate (Vistaril) 25 MG capsule Take 1 capsule (25 mg) by mouth if needed at bedtime for itching. 90 capsule 1 12/15/19 24 Active ARIPiprazole (Abilify) 15 MG tablet Take 1 tablet (15 mg) by mouth in the morning. 30 tablet 1 12/29/19 24 Active fluticasone furoate (Arnuity Ellipta) 200 MCG/ACT inhaler Inhale 1 puff in the morning. Rinse mouth with water after use to reduce aftertaste and incidence of candidiasis. Do not swallow. 1 each 3 12/29/19 24 025 Active nicotine polacrilex (Nicorette) 4 MG gum Chew 1 each (4 mg) if needed for smoking cessation. Chew 1 each every 1-4 hrs as needed for smoking cessation, on average 9 gums per day 100 each 2 12/29/19 24 Active diclofenac (Cataflam) 50 MG tabletIndications :Chronic right shoulder pain,Lumbar back pain with radiculopathy affecting right lower extremity,Sacroil iitis (CMS/HCC) Take 1 tablet (50 mg) by mouth 3 times daily. 90 tablet 06/17/20 24 Active cyclobenzaprine (Flexeril) 10 MG tabletIndications :Chronic right shoulder pain,Lumbar back pain with radiculopathy affecting right lower extremity,Sacroil iitis (CMS/HCC) TAKE 1 TABLET BY MOUTH THREE TIMES A DAY FOR 10 DAYS 30 tablet 06/28/20 24 Active Active Problems Problem Noted Date Diagnosed Date Chronic right shoulder pain 06/17/2024 Assessment & Plan (06/17/2024 4:27 PM EDT): Ordering XR of right shoulder for further evaluation and referral to Orthopaedic Surgeon. Prescribing Flexeril and Cataflam for Sx. Lumbar back pain with radicu lopathy affecting right lower extremity 06/17/2024 Iliotibial band syndrome affecting right lower l eg 06/17/2024 Sacroiliitis 06/17/2024 Assessment & Plan (06/17/2024 4:28 PM EDT): Ordering XR of Lumbar Spin and Right Hip for further evaluation. Referral to PT for further treatment. Prescribing Flexeril and Cataflam for Sx. Mood disorder 12/15/2023 Assessment & Plan (12/30/2023 2:25 AM EDT): Despite the current medication regimen, Julio César continues to experience auditory and visual hallucinations. The plan is to increase the dosage of the antipsychotic medication to better manage these symptoms. Follow-up via phone in two weeks to assess the effectiveness of the dose adjustment and discuss further treatment options if necessary. Assessment & Plan (12/16/2023 3:15 AM EDT): Patient has had difficulty in obtaining formal psychiatric diagnosis. Currently treated with Abilify 10mg at bedtime for mood disorder, not otherwise specified, with features suggestive of schizophrenia or bipolar disorder. Plan to continue medication and seek formal psychiatric evaluation for definitive diagnosis and treatment adjustment. I will assist patient in connecting with psychiatric services for formal evaluation and treatment. Hydroxyzine prescribed for anxiety and sleep as needed. Asthma 12/04/2023 Assessment & Plan (12/30/2023 2:25 AM EDT): Julio César reports improved breathing with the current medication, but physical examination reveals persistent wheezing. The provider plans to increase the dose of fluticasone. A follow-up appointment is scheduled to monitor asthma control and adjust treatment as needed. Assessment & Plan (12/16/2023 3:15 AM EDT): Plan to start medication and refer to a retail tire sales manager for comprehensive evaluation. Advised on proper inhaler use and scheduled follow-up in two weeks. Assessment & Plan (12/04/2023 8:36 PM EDT): Pt has significant wheezing, dry cough and SOB . VS are wnl . Its concerning chronicity of symptoms and reported associated night sweats Seems most likely having uncontrol asthma and possible sweating may have a component of suboxone sudden discontinuation per pt but also in differential is PNA , Tb but seems less likely with no other symptoms as hemoptysis, weight loss , fever? Pt's cough and dyspnea improved significantly here after albuterol NBZ with resolution of wheezing -STEPHEN prn and request NBZ machine to nurse staff -will resume steroids but longer taper --advised pt to do: Take 4 tablets for 3 days for 40 mg ,then take 3 tablets for 3 days for 30 mg ,then take 2 tablets for 3 days for 20 mg , then take 1 tab for 3 days for 10 mg and then take half tablet for 4 days for 5 mg -After completed PO steroids to start Pulmicort inh BID-explained to rinse mouth after use -Start montelukast daily -referred today for PFT -referred today for CXR -AFB x3 ordered today -there was no option for mycobacterium cx so requested [facility] micro lab to do AFB and cx in 3 samples -did written requisition for cx in AFB order and RONN Salcido helped me faxing ordered to hospital. -advised tobacco cessation -req nurse staff at [facility] to help scheduling apt tw PCP for f up in 2 to 3 weeks to monitor asthma -alarm signs and symptoms discussed w pt Tobacco abuse 12/04/2023 Assessment & Plan (12/04/2023 8:37 PM EDT): -advised x tobacco cessation program but refusing for now -px today nicotine gums 4 mg Q2 h prn and nicotine patches 21 mg patch daily for 6 weeks -will need to f w PCP for taper Upper respiratory tract infection 11/03/2023 Bronchitis 11/03/2023 Assessment & Plan (11/03/2023 4:53 PM EST): Patient has wheezing and poor air movement, will get steroids antibiotics and inhaler. I also ordered an X-Ray Substance use disorder 10/23/2023 Assessment & Plan (11/03/2023 4:54 PM EST): Patient was recommended to walk into [facility]. I spoke to CRS nurse who said it was fine for patient to walk in. Assessment & Plan (10/23/2023 9:30 AM EST): Patient on suboxone. Unclear if he is still using other substances. PTSD (post-traumatic stress disorder) 10/20/2023 Assessment & Plan (10/23/2023 9:34 AM EST): Patient does have a prior hx of PTSD, there is absolutely no documentation of schizophrenia and he denies taking the medications that are in his med rec. Needs f/up appt to bring information/records. Talked with provider given my concern they recommended patient to go to crisis. referral placed as was not able to contact team Bipolar 1 disorder 10/20/2023 Assessment & Plan (11/03/2023 4:56 PM EST): Patient talked with behavioral health. We'll set him up with therapy and prescriber and diagnostician. For now, I will refill his Abilify and will schedule a follow up in 2 months. Assessment & Plan (11/03/2023 1:53 PM EST): PROGRESS NOTE: ID: Julio César is a 33 y.o. White straight-identified cis-male with previous documented hx of Depression, Anxiety, Mood Disorder, Substance Use Disorder, and Trauma self reported history of Schizophrenia services including OP Psychotherapy psychopharmacology Inpatient who presents for Anxiety and PTSD (Post-Traumatic Stress Disorder) During IBH Consult Julio César presenting with depressed mood, loss of interests/pleasure , changes in sleep difficulty falling asleep and difficulty staying asleep , psychomotor agitation, trouble concentrating, fatigue/loss of energy, passive suicidal ideation w/o plan, restless/keyed up/On edge, easily fatigued, difficulty concentrating/Mind going blank , irritability, muscle tension, and sleep disturbance difficulty falling asleep and difficulty staying asleep , Abnormally elevated mood, Decreased need for sleep, and Flight of ideas, Unusual thoughts, Trouble processing and with decision making, Difficulty with social interactions, and Other: hallucinations with commands, delusions, and Flashbacks, Intrusive trauma memories and thoughts, Nightmares/night terrors, Hypervigilance, Avoidance of trauma reminders/triggers, Fear and distrust in relationships, Isolation from normal social supports, Difficulty with crowds, and Feelings of impending doom; He has Hx of cocaine use, last used on 12/12/22, has been sober since then; for a period of 18+ mo, for all symptoms in the context of recently released from correction on 10/04/23, financial struggle and seeking SSI benefits. PLAN: New/Additional Services needed Off-site services for Behavioral Health Integration Plan External OP therapy referral and OP psychiatry Referral Patient Self Plan Patient to reach out to [facility] team as needed, Comply with medication , and Patient to reach out to [facility] as needed Assessment & Plan (10/20/2023 4:14 PM EST): Patient reports needing medication that was given to him while being in senior living, however, were unable to find records. In addition, patient was advised to contact Crisis, however, patient declined, since he's not suicidal. Tried contacting behavioral health with no success. Encounters Date Type Department Care Team Description 12/20/2024 Orders Only [facility] [address] [place] [address] Kamilla Sibley MD 12/19/2024 Orders Only [facility] [address] [place] [phone] Kamilla Sibley MD Transaminitis (Primary Dx) 12/18/2024 2:00 PM EDT Office Visit [facility] [address] [place] [address] Kamilla Sibley MD Concern about memory (Primary Dx); Elevated BP without diagnosis of hypertension; Substance use disorder; Mood disorder ([facility]) 12/18/2024 Travel 12/12/2024 Telephone [facility] [address] [place] [phone] Tiffani Beatty MD Nurse Triage 12/06/2024 Population Health Risk Score [facility] () Department [address] [place] [phone] Provider, Population Health Generic from Last 3 Months Immunizations Name Administration Dates Next Due Hep A, Adult 12/01/2021,08/06/2021 Hep B, Dialysis 08/06/2021 Hep B, adult 08/11/2023,09/15/2021 Influenza injectable quadriv alent IIV4 with preservative 06/15/2023 Influenza injectable quadrivalent preservative f ree 06/15/2022 Pneumococcal Polysaccharide PPSV23 08/13/2021 Tdap 11/08/2022 Social History Tobacco Use Types Packs/Day Years Used Date Smoking Tobacco: Every Day Cigarettes Smokeless Tobacco: Never Tobacco Cessation:Ready to Q uit: Not Asked; Counseling Given: Not Answered Depression Answer Date Recorded Patient Health Questionnaire-9 [...] Orientation Straight 07/25/2022 10 :40 AM EDT Last Filed Vital Signs Vital Sign Reading Time Taken Comments Blood Pressure 131/100 12/18/2024 2:10 PM EDT Pulse 83 12/18/2024 2:10 PM EDT Temperature 36.7 ??C (98 ??F) 12/18/2024 2:10 PM EDT Respiratory Rate 20 12/18/2024 2:10 PM EDT Oxygen Saturation 97% 12/18/2024 2:10 PM EDT Inhaled Oxygen Concentration - - Weight 88.9 kg (196 lb) 12/18/2024 2:10 PM EDT Height 162.6 cm (5' 4 ) 12/18/2024 2:10 PM EDT Body Mass Index 33.64 12/18/2024 2:10 PM EDT Plan of Treatment Health Maintenance Due Date Last Done Comments Lipid Panel 1991 Alcohol/Substance Use Screening 2003 Family Planning (PISQ) 2006 Pneumococcal Vaccine: Pediatrics (0 to 5 Years) and At-Risk Patients (6 to 49) Years) (2 of 2 - PCV) 08/13/2022 08/13/2021 Depression Monitoring (PHQ-9) 05/03/2024 11/03/2023, 11/03/2023 COVID-19 Vaccine ( season) 2024 07/11/2023, 02/01/2022, 09/02/2021, Additional history exists Influenza Vaccine (#1) 2024 06/15/2023, 2021 SDOH Screening 10/25/2024 10/25/2023 Depression Screening 11/03/2024 11/03/2023, 11/03/19 24 Tobacco Screening 12/18/2025 12/18/2024 DTaP/Tdap/Td Vaccines (2 - Td or Tdap) 11/08/2032 11/08/2022 Zoster Vaccines (1 of 2) 2041 RSV Patients and Patients Aged 60 years or older (1 - 1-dose 75+ series) 2066 Hepatitis A Vaccines Aged Out 12/01/2021, 08/06/20 21 No longer eligible based on patient's age to complete this topic HIV Screening Completed 09/22/2022 Hepatitis C Screening Completed 09/22/2022 Hepatitis B Vaccines Completed 08/11/2023, 09/15/2021, 08/06/2021 HIB Vaccines Aged Out No longer eligi ble based on patient's age to complete this topic HPV Vaccines Aged Out No longer eligi ble based on patient's age to complete this topic IPV Vaccines Aged Out No longer eligi ble based on patient's age to complete this topic Meningococcal Vaccine Aged Out No james priyanka eligible based on patient's age to complete this topic RSV under 20 months Aged Out No longe r eligible based on patient's age to complete this topic Rotavirus Vaccines Aged Out No longer eligible based on patient's age to complete this topic Procedures Procedure Name Priority Date/Time Associated Diagnosis Comments COMPREHENSIVE METABOLIC PANEL Routine 12/18/2024 2:45 PM EDT Concern about memory RPR (MONITOR) W/REFL TITER Routine 12/18/2024 2:45 PM EDT Concern about memory TSH W/REFLEX TO FT4 Routine 12/18/2024 2 :45 PM EDT Concern about memory VITAMIN B12/FOLATE, SERUM PANEL Routine 12/18/2024 2:45 PM EDT Concern about memory HEPATITIS C AB W/REFL TO HCV RNA, QN, PCR Routine 09/22/2022 2:46 PM EST Screening for STD (sexually transmitted disease) HIV 1/2 ANTIGEN/ANTIBODY, FOURTH GENERATION W/RFL Routine 09/22/2022 2:46 PM EST Screening for STD (sexually transmitted disease) from Last 3 Months or Most Recently Relevant to Health Maintenance Results * Vitamin B12/Folate, Serum Panel (12/18/2024 2:45 PM EDT) Vitamin B12 602 200 - 900 pg/mL [facility] Comment:NORMAL 200-900 PG/ML INDETERMINATE 160-199 PG/ML DEFICIENT < 160 PG/ML Folate 14.4 > or = 4.0 ng/mL [facility] Comment:Reference Values:> o r = 4.0 ng/mL< 4.0 ng/mL suggests folate deficiency Methotrexate, aminopterin and folinic acid(leucovorin) are chemotherapeutic agents whose molecularstructures are similar to folate; therefore, the Architectfolate assay cannot be used for patients using these drugs. Blood Venous blood specimen / Unknown 12/18/2024 2:45 PM EDT 12/18/2024 6:24 PM EDT us Kamilla Sibley MD LAB BLOOD ORDERABLES Final Result [facility] [address] [place] [address] [phone] * TSH W/Reflex to FT4 (12/18/2024 2:45 PM EDT) [facility] TSH reflex Free T4 1.63 0.32 - 4.0 uIU/mL [facility] Blood Venous blood specimen / Unknown 12/18/2024 2:45 PM EDT 12/18/2024 6:24 PM EDT Kamilla Sibley MD LAB BLOOD ORDERABLES Final Result Performing Organization Address [facility]/ZIP Co de Phone Number [facility] [address] [place] [address] [phone] * RPR (Monitor) with Reflex to??Titer (12/18/2024 2:45 PM EDT) [facility] RPR (Monitor) w/Refl Titer NON-REACTI VE NON-REACT MALATHI [facility] Comment:THIS TEST WAS PERFOR MED AT:[facility] [address] [phone] VÁSQUEZ MD Rapid Plasma Reagin Ab Titer TNP [facility] Blood Venous blood specimen / Unknown 12/18/2024 2:45 PM EDT 12/18/2024 6:24 PM EDT us Kamilla Sibley MD LAB BLOOD ORDERABLES Final Result Performing Organization Address City/[facility]/ZIP Co de Phone Number [facility] [address] [place], [place] [phone] * (ABNORMAL) Comprehensive Metabolic Panel (12/18/2024 2:45 PM EDT) [facility] Sodium 140 135 - 145 mmol/L [facility] Potassium 3.8 3.3 - 5.1 mmol/L [facility] Chloride 109(H) 96 - 108 mmol/L [facility] Carbon Dioxide 25 22 - 29 mmol/L [facility] Anion Gap 10(L) 12 - 20 [facility] Urea Nitrogen (BUN) 10 9 - 16 mg/dL [facility] Creatinine, Serum 0.80 0.5 - 1.4 mg/dL [facility] Estimated Glomerular Filt Rate >60 [facility] Comment:Chronic Kidney Disea se: Estimated GFR < 60 mL/min/1.81x7Kphloz Kidney Disease: Estimated GFR < 15 mL/min/1.73m2 Glucose 77 60 - 115 mg/dL [facility] Calcium 8.9 8.4 - 10.2 mg/dL [facility] Bilirubin, Total 0.7 0.0 - 1.0 mg/dL [facility] Aspartate Amino Transferase 38(H) 5 - 37 U/L [facility] Alanine Aminotransferase 36 0 - 40 U/L [facility] Total Protein 7.1 6.5 - 8.0 g/dL [facility] Albumin Level 4.2 3.5 - 5.0 g/dL [facility] Alkaline Phosphatase 103 39 - 117 U/L [facility] Blood Venous blood specimen / Unknown 12/18/2024 2:45 PM EDT 12/18/2024 6:24 PM EDT us Kamilla Sibley MD LAB BLOOD ORDERABLES Final Result [facility] [address] [place] [address] [phone] * Hepatitis C Antibody with Reflex to HCV, RNA, Quantitative, Real-Time PCR (09/22/2022 2:46 PM EST) Hepatitis C Antibody NON-REACT MALATHI NON-REACT MALATHI [facility] [place] [facility] Index 0.07 <1.00 [facility] [place] [facility] Comment: HCV antibody was non-reactive. There is no laboratory evidence of HCV infection. In most cases, no further action is required. However, if recent HCV exposure is suspected, a test for HCV RNA (test code 59234) is suggested. For additional information please refer to http://education.Drug123.com/faq/JEK55k7 (This link is being provided for informational/ educational purposes only.) Blood Venous blood specimen / Unknown 09/22/2022 2:46 PM EST 09/22/2022 2:47 PM EST Narrative [facility] - 09/23/2022 5:25 PM EST FASTING:NO FASTING: NO [facility] LAB BLOOD ORDERABLES Final Re sult [facility] [address] [place] [address] [facility] [place] [facility] [address], ([address]) [place] [phone] * HIV-1/2 Antigen and Antibodies, Fourth Generation, with Reflexes (09/22/2022 2:46 PM EST) HIV Antigen/Antibody, 4th Generation NON-REAC TIVE NON-REAC TIVE [facility] [place] [facility] Comment: HIV-1 antigen and HIV-1/HIV-2 antibodies were not detected. There is no laboratory evidence of HIV infection. PLEASE NOTE: This information has been disclosed to you from records whose confidentiality may be protected by state law. ??If your state requires such protection, then the state law prohibits you from making any further disclosure of the information without the specific written consent of the person to whom it pertains, or as otherwise permitted by law. A general authorization for the release of medical or other information is NOT sufficient for this purpose. ?? For additional information please refer to http://BBspace.Drug123.com/faq/PRI427 (This link is being provided for informational/ educational purposes only.) The performance of this assay has not been clinically validated in patients less than 2 years old. Blood Venous blood specimen / Unknown 09/22/2022 2:46 PM EST 09/22/2022 2:47 PM EST Narrative [facility] - 09/23/2022 5:25 PM EST FASTING:NO FASTING: NO us [facility] [facility] LAB BLOOD ORDERABLES Final Re sult [facility] [address] [place] [address] [facility] [address] [place] [phone] from Last 3 Months or Most Recently Relevant to Health Maintenance Insurance [employer] Care Teams Metal Room Dental Technician Relationship Specialty Start Date End Date Tiffani Beatty MD [address] [place] [phone] PCP - General Family Medicine 04/11/22
--- OUTSIDE RECORDS SUMMARY | 2024-12-24 15:07 | XMS_ITS | Encounter Summary ---
Author Organization [employer] Address [address] [place] [address] [address] [place] [address] Care Team Providers Care Director Of Loss Prevention Name Role Phone Tiffani Beatty MD Primary Care Provider [phone] Encounter Details Date Type Department Care Team ([facility] st Contact Info) Description 12/20/2024 Orders Only [facility] [address] [place] [address] Kamilla Sibley MD [address] [place] [address] Social History Tobacco Use Types Packs/Day Years Used Date Smoking Tobacco: Every Day Cigarettes Smokeless Tobacco: Never Depression Answer Date Recorded Patient Health Questionnaire-9 Score 14 11/03/2023 Patient Health Questionnaire-9 Score 14 11/03/2023 Last PHQ-9: Questionnaire Data Not on file 0 11/03/2023 Housing Stability Answer Date Recorded What is your housing situation today? I have haileydavid cantu 10/25/[address] you [...] as of this encounter Plan of Treatment Not on file documented as of this encounter Visit Diagnoses Not on filedocumented in this encounter Additional Health Concerns Assessment Noted Time PHQ-9 Depression Total Score: 14 024 1:23 PM EST documented as of this encounter Care Teams Director Of Loss Prevention Relationship Specialty Start Date End Date Tiffani Beatty MD [address] [place] [address] PCP - General Family Medicine 04/11/22 documented as of this encounter
--- OUTSIDE RECORDS SUMMARY | 2024-12-24 15:07 | XMS_ITS | Encounter Summary ---
Author Organization [employer] Address [address] [place] [address] 7 [place] [address] Care Team Providers Care [employer] Name Role Phone Tiffani Beatty MD Primary Care Provider [phone] Reason for Referral * Consultation (Urgent) - Closed Specialty Diagnoses / Procedures Referred By Kimberly leigh Referred To Contact Neurology Diagnoses Concern about memory Kamilla Sibley MD [address] [place] [address] Phone: tel: fax: [facility] [address] [place] [address] Phone: tel: fax: Referral ID Status Reason Start Date Expiration Date V isits Requested Visits Authorized [id number] Closed Specialty Services Required 12/18/2024 12/18/2025 1 1 * Imaging (Routine) - Authorized Specialty Diagnoses / Procedures Referred By Kimberly leigh Referred To Contact Radiology Diagnoses Concern about memory Procedures CT Head w/o Contrast Kamilla Sibley MD [address] [place] [address] Phone: tel: fax: [address] Phone: tel: fax: Referral ID Status Reason Start Date Expiration Date V isits Requested Visits Authorized [id number] Authorized 12/18/2024 12/18/2025 1 1 Reason for Visit * Reason Comments Memory problems Encounter Details Date Type Department Care Team (Late st Contact Info) Description 12/18/2024 2:00 PM EDT Office Visit [facility] [address] [place] [phone] Kamilla Sibley MD [address] [place] [address] Concern about memory (Primary Dx); Elevated BP without diagnosis of hypertension; Substance use disorder; Mood disorder (CMS/HCC) Social History Tobacco Use Types Packs/Day Years [...] AM EDT documented as of this encounter Last Filed Vital Signs Vital Sign Reading [...] Mass Index 33.64 12/18/2024 2:10 PM EDT documented in this encounter Progress Notes * Kamilla Sibley MD - 12/18/2024 2:00 PM EDT Subjective Patient ID: Julio César Huggins is a 34 y.o. male who presents for Memory problems. HPI History was obtained from Janelle phone #[phone]. Janelle reports that Mr. Julio César Huggins has been displaying memory problem for the last 1 to 2 years. She feels that he is getting worse within the last 1 to 2 months and is very forgetful. The problem mostly affect is recent memory. Long- term memory seems to be doing okay. He has history of polysubstance use disorder. He was a heavy alcohol user. He used to drink about 1gallon of hard liquor some days and he was using cocaine extensively. He reports that he has been sober for the last 10 months. Has stopped cocaine 10 months ago but has stopped drinking alcohol morethan 2 years ago. He reports family history of dementia in his mother. No workup for his memory disturbances has beendone so far. He sleeps about 4 hours at night and works 2 jobs. And feels he is constantly tired. Patient Active Problem List Diagnosis PTSD (post-traumatic stress disorder) Bipolar 1 disorder (CMS/[facility]) Substance use disorder Upper respiratory tract infection Bronchitis Asthma Tobacco abuse Mood disorder (CMS/HCC) Chronic right shoulder pain Lumbar back pain with radiculopathy affecting right lower extremity Iliotibial band syndrome affecting right lower leg Sacroiliitis (CMS/HCC) Current Outpatient Medications on File Prior to Visit Medication Sig Dispense Refill acetaminophen (Tylenol Extra Strength) 500 MG tablet Take 1-2 tablets by mouth every 6 hours as needed for pain or fever 30 tablet 1 albuterol (2.5 MG/3ML) 0.083% nebulizer solution Take 3 mL (2.5 mg) by nebulization every 6 (six) hours if needed for wheezing. 75 mL 11 albuterol 108 (90 Base) MCG/ACT inhaler Inhale 2 puffs every 6 (six) hours if needed for wheezing. 18 g 1 ARIPiprazole (Abilify) 15 MG tablet Take 1 tablet (15 mg) by mouth in the morning. 30 tablet 1 cetirizine (ZyrTEC) 10 MG tablet TAKE 1 TABLET BY MOUTH EVERY DAY NEEDED NOT COVERED cyclobenzaprine (Flexeril) 10 MG tablet TAKE 1 TABLET BY MOUTH THREE TIMES A DAY FOR 10 DAYS 30 tablet 0 diclofenac (Cataflam) 50 MG tablet Take 1 tablet (50 mg) by mouth 3 times daily. 90 tablet 0 fluticasone furoate (Arnuity Ellipta) 200 MCG/ACT inhaler Inhale 1 puff in the morning. Rinse mouthwith water after use to reduce aftertaste and incidence of candidiasis. Do not swallow. 1 each 3 hydrOXYzine pamoate (Vistaril) 25 MG capsule Take 1 capsule (25 mg) by mouth if needed at bedtime for itching. 90 capsule 1 montelukast (Singulair) 10 MG tablet Take 1 tablet (10 mg) by mouth in the morning. 90 tablet 0 nicotine polacrilex (Nicorette) 4 MG gum Chew 1 each (4 mg) every 2 (two) hours if needed for smoking cessation. 100 each 0 nicotine polacrilex (Nicorette) 4 MG gum Chew 1 each (4 mg) if needed for smoking cessation. Chew 1each every 1-4 hrs as needed for smoking cessation, on average 9 gums per day 100 each 2 Suboxone 12-3 MG per sublingual film TAKE 1 FILM SUBLINGUAL ONCE A DAY No current facility-administered medications on file prior to visit. Allergies Allergen Reactions Prazosin Unknown Review of Systems Constitutional: Negative for appetite change, chills and diaphoresis. Respiratory: Negative for cough, choking and shortness of breath. Genitourinary: Negative for frequency, genital sores and hematuria. Musculoskeletal: Negative for joint swelling. Skin: Negative for pallor and rash. Psychiatric/Behavioral: Memory disturbances. Objective BP (!) 131/100 (BP Location: Left arm, Patient Position: Sitting, BP Cuff Size: Adult long) Pulse83 Temp 98 ??F (36.7 ??C) (Oral) Resp 20 Ht 5' 4 (1.626 m) Wt 196 lb (88.9 kg) SpO2 97% BMI 33.64 kg/m?? Physical Exam Constitutional: General: He is not in acute distress. Appearance: Normal appearance. He is not ill-appearing, toxic-appearing or diaphoretic. Cardiovascular: Rate and Rhythm: Normal rate. Pulmonary: Effort: Pulmonary effort is normal. Neurological: General: No focal deficit present. Mental Status: He is alert. Assessment/Plan Diagnoses and all orders for this visit: Concern about memory Comments: Initial workup ordered. Patient will be contacted with results. Orders: - Vitamin B12/Folate, Serum Panel; Future - TSH W/Reflex to FT4; Future - RPR (Monitor) with Reflex to Titer; Future - Comprehensive Metabolic Panel; Future - CT Head w/o Contrast; Future - Referral to Neurology; Future Elevated BP without diagnosis of hypertension Comments: Weight loss recommended 6 to 8 hours of sleep at night at least recommended Low-sodium diet. Patient educated on this. Substance use disorder Comments: Continue to remain sober Mood disorder (CMS/HCC) Comments: Denies suicidal ideation or homicidal ideation Feels overall well Declines needing help. * Eula Salinas RN - 12/18/2024 2:00 PM EDT TC to patient. Reviewed lab results and recommendations. All questions and concerns were addressed and discussed. Patient verbally agrees and will call office with any questions. documented in this encounter Plan of Treatment Scheduled Orders Name Type Priority Associated Diagnoses Orde r Schedule CT Head w/o Contrast Imaging Routine Concern about memory Expected: 12/18/2024, Expires: 12/18/2025 Scheduled Referrals Name Type Priority Associated Diagnoses Orde r Schedule Referral to Neurology Outpatient Referral Urgent Concern about memory Expected: 12/18/2024 (Approximate), Expires: 12/18/2025 documented as of this encounter Procedures Procedure Name Priority Date/Time Associated Diagnosis Comments VITAMIN B12/FOLATE, SERUM PANEL Routine 12/18/2024 2:45 PM EDT Concern about memory TSH W/REFLEX TO FT4 Routine 12/18/2024 2 :45 PM EDT Concern about memory RPR (MONITOR) W/REFL TITER Routine 12/18/2024 2:45 PM EDT Concern about memory COMPREHENSIVE METABOLIC PANEL Routine 12/18/2024 2:45 PM EDT Concern about memory documented in this encounter Results * (ABNORMAL) Comprehensive Metabolic Panel (12/18/2024 2:45 PM EDT) Sodium 140 135 - 145 mmol/L [facility] Potassium 3.8 3.3 - 5.1 mmol/L [facility] Chloride 109(H) 96 - 108 mmol/L [facility] Carbon Dioxide 25 22 - 29 mmol/L [facility] Anion Gap 10(L) 12 - 20 [facility] Urea Nitrogen (BUN) 10 9 - 16 mg/dL [facility] Creatinine, Serum 0.80 0.5 - 1.4 mg/dL [facility] Estimated Glomerular Filt Rate >60 [facility] Comment:Chronic Kidney Disea se: Estimated GFR < 60 mL/min/1.75g5Blviau Kidney Disease: Estimated GFR < 15 mL/min/1.73m2 Glucose 77 60 - 115 mg/dL [facility] Calcium 8.9 8.4 - 10.2 mg/dL [facility] Bilirubin, Total 0.7 0.0 - 1.0 mg/dL [facility] Aspartate Amino Transferase 38(H) 5 - 37 U/L [facility] Alanine Aminotransferase 36 0 - 40 U/L [facility] Total Protein 7.1 6.5 - 8.0 g/dL [facility] Albumin Level 4.2 3.5 - 5.0 g/dL [facility] Alkaline Phosphatase 103 39 - 117 U/L [facility] Blood Venous blood specimen / Unknown 12/18/2024 2:45 PM EDT 12/18/2024 6:24 PM EDT us Kamilla Sibley MD LAB BLOOD ORDERABLES Final Result Performing Organization Address [facility] Co de Phone Number [facility] [address] [place] [phone] * RPR (Monitor) with Reflex to??Titer (12/18/2024 2:45 PM EDT) RPR (Monitor) w/Refl Titer NON-REACTI VE NON-REACT MALATHI [facility] Comment:THIS TEST WAS PERFOR MED AT:[facility] [place] [phone] VÁSQUEZ MD Rapid Plasma Reagin Ab Titer TNP [facility] Blood Venous blood specimen / Unknown 12/18/2024 2:45 PM EDT 12/18/2024 6:24 PM EDT us Kamilla Sibley MD LAB BLOOD ORDERABLES Final Result Performing Organization Address [facility] Co de Phone Number [facility] [address] [place] [phone] * TSH W/Reflex to FT4 (12/18/2024 2:45 PM EDT) TSH reflex Free T4 1.63 0.32 - 4.0 uIU/mL [facility] Blood Venous blood specimen / Unknown 12/18/2024 2:45 PM EDT 12/18/2024 6:24 PM EDT us Kamilla Sibley MD LAB BLOOD ORDERABLES Final Result [facility] [address] [place] [phone] [phone] * Vitamin B12/Folate, Serum Panel (12/18/2024 2:45 PM EDT) Vitamin B12 602 200 - 900 pg/mL [facility] Comment:NORMAL 200-900 PG/ML INDETERMINATE 160-199 PG/ML DEFICIENT < 160 PG/ML Folate 14.4 > or = 4.0 ng/mL [facility] Comment:Reference Values:> o r = 4.0 [...] BLOOD ORDERABLES Final Result Performing Organization Address City/[facility] Co de Phone Number [facility] [address] [place] [address] [phone] documented in this encounter Visit Diagnoses Diagnosis Concern about memory- Primary Elevated BP without diagnosis of hypertension Substance use disorder Mood disorder (CMS/HCC) Unspecified episodic mood disorder documented in this encounter Additional Health Concerns Assessment Noted Time PHQ-9 Depression Total Score: 14 024 1:23 PM EST documented as of this encounter Care Teams [employer] Relationship Specialty Start Date End Date Tiffani Beatty MD [address] [place] [phone] PCP - General Family Medicine 04/11/22 documented as of this encounter
[2024-12-25 08:25] LABS: HBS Num1 > 1000.00 mIU/mL (0-7.99); HBc Num1 0.06 S/CO (0.00-0.79); HBsAGNum1 0.31 S/CO (0.00-0.99); Hepatitis A Antibody IgM 0.19 Index (0-0.79); Hepatitis B Core Antibody Nonreactive (Nonreactive); Hepatitis B Surface Antigen Negative (Negative); ~HepC Num1 0.13 S/CO (0.00-0.79); ~Hepatitis A Antibody IgM Nonreactive (Nonreactive); ~Hepatitis B Surface Antibody REACTIVE (Nonreactive); ~Hepatitis C Antibody Nonreactive (Nonreactive)
== END 2024-12-24 12:57 | disposition home or self-care (01) ==
LOC: HO.CHCLDS 12:56
PROVIDERS: Visit Provider Internal Medicine
DX: R74.01 Elevation of levels of liver transaminase levels (principal)
CPT/HCPCS: 36415; 86704; 86706; 86709; 86803; 87340